=== PATIENT | female | born 1935 | race Caucasian/White ===

== ENCOUNTER 2017-03-27 22:00 | Inpatient (IN) | payer MEDICARE, OTHER ==
[~2017-03-27] VITALS: Ht 152.4 cm; Wt 55.5 kg
[~2017-03-27 22:00] MED LIST: CEFP125S PO; DIAZ5 PO; FLUO0.05 TOP; LORTS
[2017-03-27 22:47] VITALS: BP 154/95; PULSE 88; RESP 18; TEMP 98.1; O2SAT 99
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
[2017-03-28 00:15] LABS: AUTOMATED NEUTROPHIL # 7.7 TH/MM3 (1.8-7.7); BASOPHIL # 0.1 TH/MM3 (0-0.2); BASOPHIL % 0.9 % (0.0-2.0); EOSINOPHIL # 0.1 TH/MM3 (0-0.4); EOSINOPHIL % 1.3 % (0.0-4.0); HEMATOCRIT 36.3 % (35.0-46.0); HEMO FLAGS DIFF FINAL; LYMPHOCYTE # 2.2 TH/MM3 (1.0-4.8); MEAN CELL VOLUME 74.5 FL (80.0-100.0); MEAN CORPUSCULAR HEMOGLOBIN 24.9 PG (27.0-34.0); MEAN CORPUSCULAR HGB CONC 33.4 % (32.0-36.0); NEUT % 72.8 % (16.0-70.0); PLATELET COUNT 450 TH/MM3 (150-450); RED BLOOD COUNT 4.87 MIL/MM3 (4.00-5.30); RED CELL DISTRIBUTION WIDTH 17.6 % (11.6-17.2); WHITE BLOOD COUNT 10.6 TH/MM3 (4.0-11.0)
[2017-03-28 00:19] LABS: BACTERIA, URINE RARE /hpf; BLOOD, URINE NEG (NEG); COMMENT (UR) CULT NOT INDICATED; CULTURE IF INDICATED CULT NOT INDICATED; GLUCOSE,URINE NEG (NEG); KETONE, URINE NEG (NEG); NITRITE,URINE NEG (NEG); URINE COLOR LIGHT-YELLOW (YELLW/STRAW)
[2017-03-28 00:31] LABS: ALT (GPT) 34 U/L (10-53); ANION GAP 10 MEQ/L (5-15); AST (GOT) 21 U/L (15-37); BICARBONATE 22.4 MEQ/L (21.0-32.0); BLOOD UREA NITROGEN 28 MG/DL (7-18); CHLORIDE 104 MEQ/L (98-107); GLOMERULAR FILTRATION RATE 61 ML/MIN (>89); POTASSIUM 4.1 MEQ/L (3.5-5.1); SODIUM (NA) 136 MEQ/L (136-145)
[2017-03-28 00:33] LABS: ALKALINE PHOSPHATASE 118 U/L (45-117); TOTAL BILIRUBIN ADULT 0.4 MG/DL (0.2-1.0)
[2017-03-28 00:36] LABS: ALCOHOL LESS THAN 3 MG/DL (0-5)
[2017-03-28 02:03] VITALS: BP 139/82; PULSE 80; RESP 18; O2SAT 97
[2017-03-28 08:50] VITALS: BP 115/78; PULSE 86; RESP 18; O2SAT 99
[2017-03-28] MEDS ORDERED: LORazepam 0.5 MG TAB PO PRN (12:30)
[2017-03-28] MEDS ORDERED: LORazepam 2 MG/ML VIAL IM PRN (12:30)
[2017-03-28] MEDS ORDERED: MAGNESIUM HYDROXIDE SUSP 30 ML CUP PO PRN (12:30)
[2017-03-28] MEDS ORDERED: ALUMINUM/MAGNESIUM/SIMETH 30 ML CUP PO PRN (12:30)
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
[2017-03-28 17:17] VITALS: BP 121/69; PULSE 76; RESP 18; O2SAT 96
--- NOTE | 2017-03-28 19:57 | RADRPT ---
EXAM DATE/TIME: 03/28/2017 18:34 [place] COMPARISON: No previous studies available for comparison. INDICATIONS : Altered mental status. RADIATION DOSE: 48.11 CTDIvol (mGy) MEDICAL HISTORY : Renal calculi. SURGICAL HISTORY : Appendectomy. ENCOUNTER: Initial ACUITY: 1 day PAIN SCALE: 5/10 LOCATION: cranial TECHNIQUE: Multiple contiguous axial images were obtained of the head. Using automated exposure control and adj ustment of the mA and/or kV according to patient size, radiation dose was kept as low as reasonably a chievable to obtain optimal diagnostic quality images. DICOM format image data is available electro nically for review and comparison. FINDINGS: CEREBRUM: The ventricles and cortical sulci are widened. There is decreased density seen in the periventricular white matter No evidence of midline shift, mass lesion, hemorrhage or acute infarction. No extra-ax ial fluid collections are seen. POSTERIOR FOSSA: The cerebellum and brainstem are intact. The 4th ventricle is midline. The cerebellopontine angle i s unremarkable. EXTRACRANIAL: The visualized portion of the orbits is intact. SKULL: The calvaria is intact. No evidence of skull fracture. CONCLUSION: 1. No acute abnormality seen. 2. Age-related atrophy and suspected small vessel ischemic change in the white matter. Mazin Dickerson MD on March 28, 2017 at 19:54 Board Certified Radiologist. This report was verified electronically.
[2017-03-28 20:05] VITALS: BP 174/90; PULSE 89; TEMP 97.4; O2SAT 98
[2017-03-28] MEDS: ACETAMINOPHEN 325 MG TAB PO PRN (22:37)
[2017-03-28] MEDS: POLYSACCHARIDE IRON COMPLEX 150 MG CAP PO SCH (23:01)
[2017-03-29 00:30] VITALS: BP 145/68; PULSE 78; RESP 18; O2SAT 98
[2017-03-29 06:00] VITALS: BP 155/77; PULSE 90; RESP 18; TEMP 97.3; O2SAT 98
--- NOTE | 2017-03-29 08:32 | EKG ---
Date Performed: 03/28/2017 Time Performed: 14:23:58 PTAGE: 81 years EKG: Sinus rhythm WITH SHORT HI INTERVAL MARKED LEFT AXIS DEVIATION PATTERN CONSISTENT WITH PULMONARY DISEASE ABNORMAL ECG WARNING: DATA QUALITY MAY AFFECT INTERPRETATION NO PREVIOUS TRACING Lead V2 is missing. DOCTOR: Lola Villar Interpretating Date/Time 03/29/2017 08:31:22
[2017-03-29] MEDS ORDERED: PNEUMOCOCCAL POLYVALENT INJ 25 MCG/0.5 ML SYR IM ONE (09:00)
[2017-03-29] MEDS ORDERED: INFLUENZA VIRUS VACCINE (QUADRIVALENT) 0.5 ML SYR IM ONE (09:00)
[2017-03-29] MEDS: POLYSACCHARIDE IRON COMPLEX 150 MG CAP PO SCH ×2 (09:06→20:36)
[2017-03-29 10:08] LABS: AUTOMATED NEUTROPHIL # 4.3 TH/MM3 (1.8-7.7); BASOPHIL # 0.1 TH/MM3 (0-0.2); BASOPHIL % 1.3 % (0.0-2.0); EOSINOPHIL # 0.2 TH/MM3 (0-0.4); EOSINOPHIL % 2.7 % (0.0-4.0); HEMATOCRIT 35.8 % (35.0-46.0); HEMO FLAGS DIFF FINAL; LYMPHOCYTE # 1.5 TH/MM3 (1.0-4.8); MEAN CELL VOLUME 75.5 FL (80.0-100.0); MEAN CORPUSCULAR HEMOGLOBIN 24.6 PG (27.0-34.0); MEAN CORPUSCULAR HGB CONC 32.6 % (32.0-36.0); MONO % 4.6 % (0.0-8.0); NEUT % 67.4 % (16.0-70.0); PLATELET COUNT 422 TH/MM3 (150-450); RED BLOOD COUNT 4.75 MIL/MM3 (4.00-5.30); RED CELL DISTRIBUTION WIDTH 17.7 % (11.6-17.2); WHITE BLOOD COUNT 6.4 TH/MM3 (4.0-11.0)
[2017-03-29 10:28] LABS: ALT (GPT) 23 U/L (10-53)
[2017-03-29 10:40] LABS: ANION GAP 8 MEQ/L (5-15); AST (GOT) 28 U/L (15-37); BICARBONATE 23.1 MEQ/L (21.0-32.0); BLOOD UREA NITROGEN 20 MG/DL (7-18); CHLORIDE 104 MEQ/L (98-107); GLOMERULAR FILTRATION RATE 71 ML/MIN (>89); POTASSIUM 4.4 MEQ/L (3.5-5.1); SODIUM (NA) 135 MEQ/L (136-145)
[2017-03-29 10:54] LABS: ALKALINE PHOSPHATASE 115 U/L (45-117); HDL CHOLESTEROL 52.3 MG/DL (40.0-60.0); LDL CHOLESTEROL 64 MG/DL (0-99); TOTAL BILIRUBIN ADULT 0.6 MG/DL (0.2-1.0)
[2017-03-29] MEDS ORDERED: hydrOXYzine HCL 50 MG TAB PO PRN (14:45)
[2017-03-29] MEDS ORDERED: ACETAMINOPHEN 325 MG TAB PO PRN (14:45)
--- NOTE | 2017-03-29 14:55 | HHI.PYPN ---
Subjective Remarks Patient seen in day room with nurse Lissett. Patient initially admitted by Dr. Alec Pimentel who to the initial H&P. Who gave her competency. Though he did acknowledge orientation only to person. However after my interview I feel patient does have dementia and does not have capacity for admission or medication management. Thus I finished the psychiatric template. I also initiated first opinion petition supporting Bell act, health care surrogate, and guardian advocate, patient herself was calm pleasant with me somewhat feisty and humerus. Though she is oriented to self, somewhat confused about location though she did not was [place], somewhat confused about date. She is so far been no behavior problems. She does say she has a granddaughter local and supportive and 2 children. For now we'll continue observation monitoring With counselor attempt to reach patient's granddaughter children to arrange a family meeting Review of Systems Constitutional: DENIES: Diaphoretic episodes, Fatigue, Fever, Weight gain, Weight loss, Chills, Dizziness, Change in appetite, Night Sweats Endocrine: DENIES: Abnorml menstrual pattern, Heat/cold intolerance, Polydipsia , Polyuria, Polyphagia Eyes: DENIES: Blurred vision, Diplopia, Eye inflammation, Eye pain, Vision loss , Photosensitivity, Double Vision Ears, nose, mouth, throat: DENIES: Tinnitus, Hearing loss, Vertigo, Nasal discharge, Oral lesions, Throat pain, Hoarseness, Ear Pain, Running Nose, Epistaxis, Sinus Pain, Toothache, Odynophagia Respiratory: DENIES: Apneas, Cough, Snoring, Wheezing, Hemoptysis, Sputum production, Shortness of breath Cardiovascular: DENIES: Chest pain, Palpitations, Syncope, Dyspnea on Exertion , PND, Lower Extremity Edema, Orthopnea, Claudication Gastrointestinal: DENIES: Abdominal pain, Black stools, Bloody stools, Constipation, Diarrhea, Nausea, Vomiting, Difficulty Swallowing, Anorexia Genitourinary: DENIES: Abnormal vaginal bleeding, Dysmenorrhea, Dyspareunia, Sexual dysfunction, Urinary frequency, Urinary incontinence, Urgency, Hematuria , Dysuria, Nocturia, Vaginal discharge Musculoskeletal: DENIES: Joint pain, Muscle aches, Stiffness, Joint Swelling, Back pain, Neck pain Integumentary: DENIES: Abnormal pigmentation, Pruritus, Rash, Nail changes, Breast masses, Breast skin changes, Nipple discharge Hematologic/lymphatic: DENIES: Bruising, Lymphadenopathy Immunologic/allergic: DENIES: Eczema, Urticaria Neurologic: DENIES: Abnormal gait, Headache, Localized weakness, Paresthesias, Seizures, Speech Problems, Tremor, Poor Balance Psychiatric: COMPLAINS OF: Depression Objective Alert: Yes [place]: Person Mood: Anxious (mildly), Calm, Depressed (mildly) Affect: Other (slight increase range and intensity) Memory Intact: Comment (poor) Hallucinations: Other (denies) Delusions: No Delusion Type: Other (denies) Suicidal: Ideation (denies at this time) Homicidal: Ideation (denies) Insight/Judgment Poor Labs Test 03/29/17 08:52 White Blood Count 6.4 TH/MM3 Red Blood Count 4.75 MIL/MM3 Hemoglobin 11.7 GM/DL Hematocrit 35.8 % Mean Corpuscular Volume 75.5 FL Mean Corpuscular Hemoglobin 24.6 PG Mean Corpuscular Hemoglobin Concent 32.6 % Red Cell Distribution Width 17.7 % Platelet Count 422 TH/MM3 Mean Platelet Volume 8.1 FL Neutrophils (%) (Auto) 67.4 % Lymphocytes (%) (Auto) 24.0 % Monocytes (%) (Auto) 4.6 % Eosinophils (%) (Auto) 2.7 % Basophils (%) (Auto) 1.3 % Neutrophils # (Auto) 4.3 TH/MM3 Lymphocytes # (Auto) 1.5 TH/MM3 Monocytes # (Auto) 0.3 TH/MM3 Eosinophils # (Auto) 0.2 TH/MM3 Basophils # (Auto) 0.1 TH/MM3 CBC Comment DIFF FINAL Differential Comment Blood Urea Nitrogen 20 MG/DL Creatinine 0.78 MG/DL Random Glucose 80 MG/DL Total Protein 7.1 GM/DL Albumin 2.9 GM/DL Calcium Level 9.0 MG/DL Alkaline Phosphatase 115 U/L Aspartate Amino Transf (AST/SGOT) 28 U/L Alanine Aminotransferase (ALT/SGPT) 23 U/L Total Bilirubin 0.6 MG/DL Sodium Level 135 MEQ/L Potassium Level 4.4 MEQ/L Chloride Level 104 MEQ/L Carbon Dioxide Level 23.1 MEQ/L Anion Gap 8 MEQ/L Estimat Glomerular Filtration Rate 71 ML/MIN Triglycerides Level 95 MG/DL Cholesterol Level 135 MG/DL LDL Cholesterol 64 MG/DL HDL Cholesterol 52.3 MG/DL Cholesterol/HDL Ratio 2.58 RATIO Vitamin B12 Level 738 PG/ML 25-Hydroxy Vitamin D Total 24.4 ng/ML Thyroid Stimulating Hormone 3rd Gen 0.960 uIU/ML Vitals/IOs Vital Signs Date Time Temp Pulse Resp B/P (MAP) Pulse Ox O2 Delivery O2 Flow Rate FiO2 03/29/17 06:00 97.3 90 18 155/77 (103) 98 03/28/17 17:17 Room Air Intake and Output 03/29/17 03/29/17 03/30/17 08:00 16:00 00:00 Intake Total 0 ml Balance 0 ml Assessment & Plan Problem List: (1) DEMENTIA IN OTH DISEASES CLASSD ELSWHR W BEHAVIORAL DISTURB ICD Codes: F02.81 - DEMENTIA IN OTH DISEASES CLASSD ELSWHR W BEHAVIORAL DISTURB (2) ALZHEIMER'S DISEASE WITH LATE ONSET ICD Codes: G30.1 - ALZHEIMER'S DISEASE WITH LATE ONSET Assessment & Plan Estimated LOS: days patient remains confused disoriented, with no insight. Justification for Cont. Inpt. This time patient will decompensate if the placed a lower level of care Discharge Planning To be determined Request HC Surrog/Guard Advoc?: Yes Mazin Dela Cruz MD Mar 29, 2017 14:55
[2017-03-29 16:57] LABS: HEMOGLOBIN A1a 1.1 %; HEMOGLOBIN A1b 1.8 %; HEMOGLOBIN Ao 84.5 %; HEMOGLOBIN LA1C 2.1 %; HEMOGLOBIN P3 5.7 %
[2017-03-29 18:39] VITALS: BP 120/73; PULSE 85; RESP 18; TEMP 98
[2017-03-29] MEDS ORDERED: diphenhydrAMINE HCL 50 MG CAP PO PRN (21:00)
[2017-03-29] MEDS: ACETAMINOPHEN 325 MG TAB PO PRN (21:35)
[2017-03-30 06:00] VITALS: BP 142/60; PULSE 74; RESP 16; TEMP 97.3; O2SAT 95
[2017-03-30] MEDS: POLYSACCHARIDE IRON COMPLEX 150 MG CAP PO SCH ×2 (09:00→21:17)
--- NOTE | 2017-03-30 10:02 | HHI.PYPN ---
Subjective Remarks Patient seen with nurse Ngozi and counselor Bernie. Chart reviewed. Patient seen patient laying quietly in her room in bed, she is calm cooperative and pleasant though continues diffusely confused disoriented. There is no behavioral problems. However it appears patient's granddaughter is some reluctance to give permission for medications including Benadryl Atarax and Ativan. Will have counselor attempt to call granddaughter to arrange for a family meeting will the next 24-48 hours Review of Systems Except as stated in HPI: all other systems reviewed are Neg Objective Alert: Yes [place]: Person Mood: Anxious (mildly), Calm, Depressed (mildly) Affect: Other (slight increase range and intensity) Memory Intact: Comment (poor) Hallucinations: Other (denies) Delusions: No Delusion Type: Other (denies) Suicidal: Ideation (denies at this time) Homicidal: Ideation (denies) Insight/Judgment Very poor Vitals/IOs Vital Signs Date Time Temp Pulse Resp B/P (MAP) Pulse Ox O2 Delivery O2 Flow Rate FiO2 03/30/17 06:00 97.3 74 16 142/60 (87) 95 03/28/17 17:17 Room Air Assessment & Plan Problem List: (1) DEMENTIA IN OTH DISEASES CLASSD ELSWHR W BEHAVIORAL DISTURB ICD Codes: F02.81 - DEMENTIA IN OTH DISEASES CLASSD ELSWHR W BEHAVIORAL DISTURB (2) ALZHEIMER'S DISEASE WITH LATE ONSET ICD Codes: G30.1 - ALZHEIMER'S DISEASE WITH LATE ONSET Assessment & Plan Estimated LOS: days patient continues confused and demented the behavioral problems. Need to arrange family meeting with patient's granddaughter to discuss medications placement and treatment options Justification for Cont. Inpt. At this time patient will decompensate with placed in a lower level of care Discharge Planning To be determined Request HC Surrog/Guard Advoc?: Yes Mazin Dela Cruz MD Mar 30, 2017 10:02
--- NOTE | 2017-03-30 11:54 | PD.PSY.CON ---
Provisional Diagnosis Admission Date Mar 28, 2017 at 12:25 [place]. Adjustment disorder with mixed disturbance of emotion and conduct Rule out dementia History of Present Illness Service Psychiatry Consult Requested By Reason for Consult Second opinion Primary Care Physician No Primary Care Physician HPI This is an 81-year-old female who presents under a Bell act for making suicidal statements. According to the Bell act, the patient herself called 911 ("on accident") and stated she would commit suicide if her television wasn' t fixed and she didn't get her Social Security. If further states she is tired of living in misery. The Bell act indicates her home does not have much food. She has multiple operations technician filled with spoiled milk. She further has not bathed in several days.Patient was seen in the emergency department and initially had some confusion regarding the date and short term memory testing. Upon interview with this physician, she is oriented to date but she still insists that someone is stealing her money. This physician called the patient's granddaughter, who indicates the patient is sometimes confused and she needs attention every day or she has difficulties functioning. She states the patient 's son has his name on her bank accounts but she is unaware of his handling of her money. She states the patient's daughter has been caring for the patient, but that they do it differently. The granddaughter feels the patient is not able to live alone independently. The patient did make suicidal statements as well as threats. Patient was seen today for psychiatric second opinion. Case was also discussed with Dr. Dela Cruz. On psychiatric evaluation patient is found in her room, laying in her bed, a little bit opositional, requesting to be discharged to go home. Patient says that she doesn't know the reason of her hospitalization. Patient says that she is from [place] she doesn't know what she is doing here. She denies suicidal and homicidal ideation, she denies visual and auditory hallucinations. Past Family Social History Uncoded Allergies: THROAT SPRAY (Allergy, Severe, 01/27/10) No Active Prescriptions or Reported Meds Current Medications Medications (Trade) Dose Ordered Sig/Jill Route Start Time Stop Time Status Last Admin (Ativan) 0.5 mg Q12H PRN PO 03/28/17 12:30 Future Hold 03/28/17 22:36 (Ativan Inj) 0.5 mg Q12H PRN IM 03/28/17 12:30 Future Hold (Tylenol) 650 mg Q4H PRN PO 03/28/17 12:30 03/29/17 21:35 (Milk Of Magnesia Liq) 30 ml DAILY PRN PO 03/28/17 12:30 (Mag-Al Plus Susp Liq) 30 ml Q6H PRN PO 03/28/17 12:30 (Nu-Iron) 150 mg Q12HR PO 03/28/17 21:00 03/29/17 20:36 (Benadryl) 50 mg HS PRN PO 03/29/17 21:00 Future Hold (Atarax) 50 mg Q6H PRN PO 03/29/17 14:45 Future Hold Patient's Strengths (min. 2) Verbal and has access to healthcare. Physical Exam Vital Signs Vital Signs Date Time Temp Pulse Resp B/P (MAP) Pulse Ox O2 Delivery O2 Flow Rate FiO2 03/30/17 06:00 97.3 74 16 142/60 (87) 95 03/28/17 17:17 Room Air I/O 03/30/17 03/30/17 03/31/17 08:00 16:00 00:00 Intake Total 240 ml Balance 240 ml Mental Status Examination Appearance Any legal woman, age appearing, oppositional, poorly cooperative Speech: Unremarkable Orientation: Person Memory: Impaired (describe) Thought Process: Organized, Goal Directed Thought Content: Paranoid Hallucination Type: None Attention and Concentration: Abnormal Suicidal Ideation: Yes Previous Suicide Attempts: No Homicidal Ideation: No Previous Homicide Attempts: No Insight: Fair Judgment: Unrealistic Affect: Anxious Mood: Anxious Motor Activity: Normal gait Assessment & Plan Problem List: (1) DEMENTIA IN OTH DISEASES CLASSD ELSWHR W BEHAVIORAL DISTURB ICD Codes: F02.81 - DEMENTIA IN OTH DISEASES CLASSD ELSWHR W BEHAVIORAL DISTURB (2) ALZHEIMER'S DISEASE WITH LATE ONSET ICD Codes: G30.1 - ALZHEIMER'S DISEASE WITH LATE ONSET Assessment & Plan: I have seen and examined this patient, discussed with Dr. Dela Cruz, I agree and concur with this plan and assessment. Consult appreciated. Assessment & Plan Estimated LOS: days Request HC Surrog/Guard Advoc?: Yes Don Mancilla MD Mar 30, 2017 11:54
[2017-03-30 18:00] VITALS: BP 150/80; PULSE 82; RESP 18; TEMP 97.5; O2SAT 98
--- NOTE | 2017-03-30 21:12 | MB ---
cc: JIGNESH GARCIA M.D. DATE OF CONSULTATION 03/30/17 DATE OF 1935 AGE 81 REASON FOR CONSULTATION Cognitive decline, possible dementia. HISTORY OF PRESENT ILLNESS This is an 81-year-old woman Bell Acted because she apparently called the night of admission threatening to hurt herself. She was found in the house and transported here. Apparently, her living circumstances were not very good. She can not tell me any past medical history. Per chart it states that she has glaucoma. She has had an appendectomy and tonsillectomy. No active medications listed. She states that she was just visiting with family. She states it is her daughter. PHYSICAL EXAMINATION VITAL SIGNS: On exam vitals temperature is 97.3, pulse 74, respiratory rate 16, blood pressure 142/60, satting at 95%. NEURO: She is awake and alert to herself. She knows that she lives in [place]. She states she moved here from [place] but can not tell me how long ago. She thinks it is fall. She is not sure if it is February or March. She does not know the day of the week or the date. She knows it is 20 something but cannot tell me the year. Can not tell me the governor of [place]. Does not know who the cco & president is. Zero recall of three objects. She cannot spell world backwards. She follows commands. Her pupils are reactive. Face symmetrical. Tongue midline. Motor aguilera there is no lateralizing deficits. No drift or leg lag. Cerebellar testing normal. DTRs are 1 to 2+. Gait is normal. LABORATORY DATA Labs reviewed. TSH was 0.960. Her B12 was 738, vitamin D is low at 24.4. Toxicology was negative. Urine was unremarkable. IMAGING STUDIES CT of the head showed atrophy but nothing acute. IMPRESSION Likely dementia process in an 81-year-old woman. Recommend getting an EEG, add an RPR and I asked her about if she is willing to take any medicines for memory, start her on Namenda 5 milligrams daily, increasing by 5 milligrams weekly until she reaches 10 milligrams b.i.d. dosing. Continue current care. Thank you for consulting neurology. MD MIMA Lim/TOM /6:22 PM /8:57 PM
[2017-03-31 06:05] VITALS: BP 138/94; PULSE 78; RESP 15; TEMP 96.9; O2SAT 96
[2017-03-31] MEDS: POLYSACCHARIDE IRON COMPLEX 150 MG CAP PO SCH ×2 (09:00→21:00)
[2017-03-31] MEDS: MEMANTINE HCL 5 MG TAB PO SCH (09:30)
--- NOTE | 2017-03-31 16:42 | HHI.PYPN ---
Subjective Remarks Patient seen in dayroom with floor staff, patient calm pleasant with me, continues pleasantly confused. Has been compliant with the medication. Review of Systems Except as stated in HPI: all other systems reviewed are Neg Mental Status Examination Appearance: Appropriate Consciousness: Alert Orientation: Person, Place Motor Activity: Normal gait Speech: Unremarkable, Other (somewhat disorganized) Language: Adequate Fund of Knowledge: Poor Attention and Concentration: Other (poor) Memory: Impaired Mood: Other (euthymic to somewhat irritable) Affect: Other (plan increase range intensity) Thought Process & Associations: Linear Thought Content: Ideas of reference Hallucination Type: None (denies) Delusion Type: Other (mildly vigilant) Suicidal Ideation: No Suicidal Plan: No Suicidal Intention: No Homicidal Ideation: No Homicidal Plan: No Homicidal Intention: No Insight: Poor Judgment: Poor Results Labs Test 03/31/17 10:22 Rapid Plasma Reagin NON-REACTIVE Vitals/IOs Vital Signs Date Time Temp Pulse Resp B/P (MAP) Pulse Ox O2 Delivery O2 Flow Rate FiO2 03/31/17 06:05 96.9 78 15 138/94 (109) 96 03/28/17 17:17 Room Air Intake and Output 03/31/17 03/31/17 04/01/17 08:00 16:00 00:00 Intake Total 240 ml 720 ml Balance 240 ml 720 ml Assessment & Plan Problem List: (1) DEMENTIA IN OTH DISEASES CLASSD ELSWHR W BEHAVIORAL DISTURB ICD Codes: F02.81 - DEMENTIA IN OTH DISEASES CLASSD ELSWHR W BEHAVIORAL DISTURB (2) ALZHEIMER'S DISEASE WITH LATE ONSET ICD Codes: G30.1 - ALZHEIMER'S DISEASE WITH LATE ONSET Assessment & Plan Estimated LOS: days patient remains confused demented though no behavior problems. Continues to remain some issues related to relationship of patient's daughter, and granddaughter Justification for Cont. Inpt. At this time patient decompensated placed a lower level of care Discharge Planning Place remains problematic between various family members and consideration of an KATIA Request HC Surrog/Guard Advoc?: Yes Mazin Dela Cruz MD Mar 31, 2017 16:42
[2017-03-31 17:59] VITALS: BP 124/81; PULSE 75; RESP 15; TEMP 97.6; O2SAT 97
[2017-03-31] MEDS: ACETAMINOPHEN 325 MG TAB PO PRN (21:10)
--- NOTE | 2017-03-31 21:42 | MG ---
cc: ELOISA BOYLE MD Lab No: [id number] Date:03/31/17 Age: 81 Sex: F Race: DATE OF 1935 HISTORY An 81-year-old with history of confusion. DESCRIPTION 5-8 Hz posterior rhythm, 20-50 microvolts, theta beta in the frontal channels with myogenic artifact, a lot of eye blink movement artifact noted. Attenuation of background slowing with transition into drowsy state. Bitemporal slowing and drowsiness. Reduced driving with photic stimulation. Single lead EKG showing sinus rhythm. INTERPRETATION Mild encephalopathy and drowsy state. Clinical correlation. Eloisa Boyle MD MG/EO /9:09 PM /9:36 PM
[2017-04-01 05:55] VITALS: BP 142/82; PULSE 73; RESP 17; TEMP 97.4
[2017-04-01] MEDS: POLYSACCHARIDE IRON COMPLEX 150 MG CAP PO SCH (09:00)
[2017-04-01] MEDS ORDERED: NAME5TAB2 PO (09:21)
[2017-04-01] MEDS ORDERED: NU-IRON PO (09:21)
[2017-04-01] MEDS: MEMANTINE HCL 5 MG TAB PO SCH (09:25)
--- NOTE | 2017-04-01 09:28 | HHI.DS ---
Psychiatry Discharge Summary Inpatient Psychiatric care?: Yes Advance Directive: No Reason Not Provided: patient declined Mental Health AdvanceDirective: No (patient declined) Health Care Proxy: No (patient declined) Admission Admission Date Mar 28, 2017 at 12:25 Admission Diagnosis: (1) ALZHEIMER'S DISEASE WITH LATE ONSET ICD Code: G30.1 - ALZHEIMER'S DISEASE WITH LATE ONSET (2) DEMENTIA IN OTH DISEASES CLASSD ELSWHR W BEHAVIORAL DISTURB ICD Code: F02.81 - DEMENTIA IN OTH DISEASES CLASSD ELSWHR W BEHAVIORAL DISTURB Brief History This is an 81-year-old female who presents under a Bell act for making suicidal statements. According to the Bell act, the patient herself called 911 ("on accident") and stated she would commit suicide if her television wasn' t fixed and she didn't get her Social Security. If further states she is tired of living in misery. The Bell act indicates her home does not have much food. 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 She further has not bathed in several days.Patient was seen in the emergency department and initially had some confusion regarding the date and short term memory testing. Upon interview with this physician, she is oriented to date but she still insists that someone is stealing her money. This physician called the patient's granddaughter, who indicates the patient is sometimes confused and she needs attention every day or she has difficulties functioning. She states the patient 's son has his name on her bank accounts but she is unaware of his handling of her money. She states the patient's daughter has been caring for the patient, but that they do it differently. The granddaughter feels the patient is not able to live alone independently. The patient did make suicidal statements as well as threats. Patient was seen today for psychiatric second opinion. Case was also discussed with Dr. Dela Cruz. On psychiatric evaluation patient is found in her room, laying in her bed, a little bit opositional, requesting to be discharged to go home. Patient says that she doesn't know the reason of her hospitalization. Patient says that she is from [place] she doesn't know what she is doing here. She denies suicidal and homicidal ideation, she denies visual and auditory hallucinations. Tobacco Use In Past 30 Days: No Tobacco Past 30 Days Alcohol Use: Never Hospital Course Patient's hospital course was uneventful. There are no behavioral problems noted. She is compliant with medications. Her confusion cognitive issues were present. Though she did show abilities focus and to cooperate. Is discussions with both patient's daughter and granddaughter. They both appear to care for the patient. They're both willing to assume some type of [facility] care. However feel that with the daughter being at home and able to care for patients more during the day then the granddaughter who was working and raising 4 children that the daughter may be some more appropriate primary care. We did meet with the daughter today along with patient. Patient is willing to go home with her daughter. The daughter made a commitment for her mother state in the home with her. She is also agreeing to home health care, follow up with primary care doctor Dr. Sun, compliance with her medication. Patient also is willing to do this. Thus patient will be discharged today to her daughter with follow-up primary care Dr. Sun and referral to home health care Results Blood Pressure 142 / 82 Vital Signs Date Time Temp Pulse Resp B/P (MAP) Pulse Ox O2 Delivery O2 Flow Rate FiO2 04/01/17 05:55 97.4 73 17 142/82 (102) 03/31/17 17:59 97 03/28/17 17:17 Room Air Laboratory Tests Test 03/31/17 10:22 Laboratory Results Test 03/29/17 08:52 Cholesterol Level 135 MG/DL (120-200) HDL Cholesterol 52.3 MG/DL (40.0-60.0) Hemoglobin A1c 5.7 % (4.3-6.0) LDL Cholesterol 64 MG/DL (0-99) Triglycerides Level 95 MG/DL (42-150) Summary of Procedures None done Imaging Last Impressions Head CT 03/28/17 0000 Signed Impressions: Service Date/Time: Tuesday, March 28, 2017 18:34 - CONCLUSION: 1. No acute abnormality seen. 2. Age-related atrophy and suspected small vessel ischemic change in the white matter. Mazin Dickerson MD Pending results at discharge: No Medications # of Antipsychotic meds at D/C: 0 Approp Antipsych med options 1 - Minimum of three failed multiple trials of monotherapy. 2 - Documented plan to taper to monotherapy due to previous use of multiple meds OR cross-taper in progress at D/C. 3 - Documentation of augmentation of Clozapine. 4 - Justification other than those listed in allowable values 1-3, document here : Discharge Discharge Date: Apr 01, 2017 Discharge Diagnosis: (1) ALZHEIMER'S DISEASE WITH LATE ONSET Diagnosis: Principal ICD Code: G30.1 - ALZHEIMER'S DISEASE WITH LATE ONSET (2) DEMENTIA IN OTH DISEASES CLASSD ELSWHR W BEHAVIORAL DISTURB Diagnosis: Principal ICD Code: F02.81 - DEMENTIA IN OTH DISEASES CLASSD ELSWHR W BEHAVIORAL DISTURB Pt Condition on Discharge: Stable Discharge Disposition: Discharge Home Discharge Instructions Diet Instructions: As Tolerated, No Restrictions Activities you can perform: Regular-No Restrictions Scheduled Appointment: follow-up Dr. Sun, follow-up home health care Discharge Time > 30 minutes Mental Status Examination Appearance: Appropriate Consciousness: Alert Orientation: Person, Place Motor Activity: Normal gait Speech: Unremarkable, Other (somewhat disorganized) Language: Adequate Fund of Knowledge: Poor Attention and Concentration: Other (poor) Memory: Impaired Mood: Other (euthymic to somewhat irritable) Affect: Other (plan increase range intensity) Thought Process & Associations: Linear Thought Content: Ideas of reference Hallucination Type: None (denies) Delusion Type: Other (mildly vigilant) Suicidal Ideation: No Suicidal Plan: No Suicidal Intention: No Homicidal Ideation: No Homicidal Plan: No Homicidal Intention: No Insight: Poor Judgment: Poor Discharge/Advance Care Plan Health Problems: (1) DEMENTIA IN OTH DISEASES CLASSD ELSWHR W BEHAVIORAL DISTURB (2) ALZHEIMER'S DISEASE WITH LATE ONSET Goals to promote your health * To prevent worsening of your condition and complications * To maintain your health at the optimal level Directions to meet your goals Take your medications as prescribed Follow your dietary instruction Follow activity as directed Keep your appointments as scheduled Take your immunizations and boosters as scheduled If your symptoms worsen call your PCP, if no PCP go to Urgent Care Center or Emergency Room For 24 questions related to your inpatient stay or results of tests pending at discharge, please contact Dr. Mazin Dela Cruz at Smoking is Dangerous to Your Health. Avoid second hand smoking Mazin Dela Cruz MD Apr 01, 2017 09:27
== END 2017-04-01 12:10 | disposition home or self-care (01) | DRG 57 ==
LOC: NEPD 22:00 → NEDA 03-28 12:25 → H250 03-28 20:02
PROVIDERS: ADMIT Psychiatry & Neurology Psychiatry; ATTEND Psychiatry & Neurology Psychiatry
DX: G30.1 Alzheimer's disease with late onset (principal); F02.81 Dementia in other diseases classified elsewhere, unspecified severity, with behavioral disturbance; H40.9 Unspecified glaucoma; I10 Essential (primary) hypertension
CPT/HCPCS: 70450; 80053; 80061; 80307; 81001; 82306; 82607; 83036; 84443; 85025; 86592; 93005; 95819; Q0163

== ENCOUNTER 2017-05-03 14:11 | Inpatient (IN) | payer MEDICARE, OTHER ==
[~2017-05-03] VITALS: Ht 152.4 cm; Wt 46.0 kg
[~2017-05-03 14:11] MED LIST changes: -CEFP125S PO; -DIAZ5 PO; -FLUO0.05 TOP; -LORTS; +NAME5TAB2 PO; +NU-IRON PO
[2017-05-03 14:16] VITALS: BP 152/92; PULSE 96; RESP 20; TEMP 98.1; O2SAT 98
[2017-05-03] MEDS ORDERED: SODIUM CHLORIDE 0.9% FLUSH 10 ML FLUSH IVF PRN (14:30)
--- NOTE | 2017-05-03 14:31 | PD ---
HPI Chief Complaint: Neuro Symptoms/ Deficits Time Seen by Provider: 14:24 Travel History International Travel<30 days: No Contact w/Intl Traveler<30days: No Traveled to known affect area: No History of Present Illness HPI Patient is an 81-year-old female presenting to the emergency evaluation of strokelike symptoms. Patient was last seen normal last night. Daughter is at bedside and states patient fell out of bed and was found on the floor. Patient was put back into bed. When she woke up this morning patient was unable to ambulate to the bathroom as she normally would, daughter states that she wasn't moving her leg. When the home health nurse arrived she recognized the stroke symptoms and was brought to the emergency department. Patient has a history of dementia. Patient reports pain in her face secondary to fall. Patient did not quantify her pain scale. Patient does report not feeling well, daughter states that she has had a cough for 2-3 days. PFSH Past Medical History Arthritis: No Autoimmune Disease: No Anxiety: Yes Depression: No Heart Rhythm Problems: No Cancer: No Cardiovascular Problems: No High Cholesterol: No Chemotherapy: No Chest Pain: Yes Congestive Heart Failure: No Diabetes: No Diminished Hearing: No Endocrine: No Glaucoma: Yes Genitourinary: No Headaches: No Hepatitis: No Hiatal Hernia: No Hypertension: Yes Immune Disorder: No Kidney Stones: Yes Musculoskeletal: Yes (recent balance problems, last 6 months) Neurologic: No Psychiatric: No Reproductive: No Respiratory: No Radiation Therapy: No Seizures: No Sickle Cell Disease: No Thyroid Disease: No Menopausal: Yes Past Surgical History Abdominal Surgery: Yes (APPENDECTOMY) Appendectomy: Yes Cardiac Surgery: No Ear Surgery: No Endocrine Surgery: No Eye Surgery: No Genitourinary Surgery: No Gynecologic Surgery: No Oral Surgery: Yes (ADENOTONSILLECTOMY) Pacemaker: No Thoracic Surgery: No Other Surgery: Yes Social History Alcohol Use: No Tobacco Use: No Substance Use: No Allergies-Medications (Allergen,Severity, Reaction): Uncoded Allergies: THROAT SPRAY (Allergy, Severe, 01/27/10) Reported Meds & Prescriptions Reported Meds & Active Scripts Active Reported Trazodone (Trazodone HCl) 50 Mg Tab 50 Mg PO HS Lorazepam 0.5 Mg Tab 0.5 Mg PO Q8H PRN Quetiapine (Quetiapine Fumarate) 25 Mg Tab 25 Mg PO BID Review of Systems Except as stated in HPI: all other systems reviewed are Neg HENT: No: Headaches Cardiovascular: No: Chest Pain or Discomfort Respiratory: Positive: Cough, No: Shortness of Breath Gastrointestinal: No: Vomiting Musculoskeletal: Positive: Pain Skin: Positive Change in Pigmentation Neurologic: Positive: Weakness, Focal Abnormalities Physical Exam Narrative GENERAL: Thin, well-developed, alert elderly female. Resting in no acute distress SKIN: Warm and dry. Edema and ecchymosis noted to right cheek. Ecchymosis noted to bilateral upper eyelids and bilateral lower eyelids, edema noted to bridge of nose HEAD: As above. Normocephalic. EYES: Pupils equal and round. No scleral icterus. No injection or drainage. Extraocular movements are intact ENT: No nasal bleeding or discharge. Mucous membranes pink and moist. No septal hematoma noted on exam. NECK: Trachea midline. No JVD. No cervical spine tenderness or step-off noted. CARDIOVASCULAR: Regular rate and rhythm. RESPIRATORY: No accessory muscle use. Clear to auscultation. Breath sounds equal bilaterally. GASTROINTESTINAL: Abdomen soft, non-tender, nondistended. Hepatic and splenic margins not palpable. MUSCULOSKELETAL: Extremities without clubbing, cyanosis, or edema. No obvious deformities. NEUROLOGICAL: Awake and alert. Motor grossly within normal limits. 3 out of 5 muscle strength in the right arms and legs. 5 out of 5 muscle strength in the left upper and lower extremities. Normal speech. PSYCHIATRIC: Appropriate mood and affect; insight and judgment normal. Data Data Last Documented VS Vital Signs Date Time Temp Pulse Resp B/P (MAP) Pulse Ox O2 Delivery O2 Flow Rate FiO2 05/03/17 16:18 72 18 138/81 (100) 97 Room Air 05/03/17 14:16 98.1 Orders Orders Electrocardiogram (05/03/17 14:23) Prothrombin Time / Inr (Pt) (05/03/17 14:23) Act Partial Throm Time (Ptt) (05/03/17 14:23) Complete Blood Count With Diff (05/03/17 14:23) Comprehensive Metabolic Panel (05/03/17 14:23) Creatine Kinase (Cpk) (05/03/17 14:23) Urinalysis - C+S If Indicated (05/03/17 14:23) Ct Brain W/O Iv Contrast(Rout) (05/03/17 14:23) Chest, Single Ap (05/03/17 14:23) Ecg Monitoring (05/03/17 14:23) Iv Access Insert/Monitor (05/03/17 14:23) Oximetry (05/03/17 14:23) Cath For Specimen (05/03/17 14:23) Sodium Chloride 0.9% Flush (Ns Flush) (05/03/17 14:30) Ct Cerv Spine W/O Contrast (05/03/17 ) Ct Facial Bones W/O Iv Cont (05/03/17 ) Troponin I (05/03/17 14:23) Urine Culture (05/03/17 14:30) Admit Order (Ed Use Only) (05/03/17 16:48) Labs Laboratory Tests Test 05/03/17 14:30 White Blood Count 8.1 TH/MM3 Red Blood Count 5.16 MIL/MM3 Hemoglobin 13.0 GM/DL Hematocrit 40.0 % Mean Corpuscular Volume 77.4 FL Mean Corpuscular Hemoglobin 25.2 PG Mean Corpuscular Hemoglobin Concent 32.5 % Red Cell Distribution Width 20.6 % Platelet Count 336 TH/MM3 Mean Platelet Volume 7.9 FL Neutrophils (%) (Auto) 76.6 % Lymphocytes (%) (Auto) 16.7 % Monocytes (%) (Auto) 4.5 % Eosinophils (%) (Auto) 1.1 % Basophils (%) (Auto) 1.1 % Neutrophils # (Auto) 6.2 TH/MM3 Lymphocytes # (Auto) 1.3 TH/MM3 Monocytes # (Auto) 0.4 TH/MM3 Eosinophils # (Auto) 0.1 TH/MM3 Basophils # (Auto) 0.1 TH/MM3 CBC Comment DIFF FINAL Differential Comment Prothrombin Time 11.6 SEC Prothromb Time International Ratio 1.0 RATIO Activated Partial Thromboplast Time 27.7 SEC Urine Color YELLOW Urine Turbidity CLEAR Urine pH 6.0 Urine Specific [place] 1.022 Urine Protein 30 mg/dL Urine Glucose (UA) NEG mg/dL Urine Ketones 80 mg/dL Urine Occult Blood NEG Urine Nitrite NEG Urine Bilirubin NEG Urine Urobilinogen 2.0 MG/DL Urine Leukocyte Esterase NEG Urine RBC LESS THAN 1 /hpf Urine WBC 1 /hpf Urine Squamous Epithelial Cells <1 /hpf Urine Renal Epithelial Cells <1 /hpf Urine Bacteria OCC /hpf Urine Hyaline Casts 6 /lpf Urine Mucus FEW /lpf Microscopic Urinalysis Comment CATH-CULTURE IND Blood Urea Nitrogen 12 MG/DL Creatinine 0.72 MG/DL Random Glucose 92 MG/DL Total Protein 7.0 GM/DL Albumin 2.9 GM/DL Calcium Level 9.0 MG/DL Alkaline Phosphatase 211 U/L Aspartate Amino Transf (AST/SGOT) 23 U/L Alanine Aminotransferase (ALT/SGPT) 21 U/L Total Bilirubin 0.5 MG/DL Sodium Level 139 MEQ/L Potassium Level 3.5 MEQ/L Chloride Level 103 MEQ/L Carbon Dioxide Level 23.2 MEQ/L Anion Gap 13 MEQ/L Estimat Glomerular Filtration Rate 77 ML/MIN Total Creatine Kinase 51 U/L Troponin I LESS THAN 0.02 NG/ML MDM Medical Decision Making Medical Screen Exam Complete: Yes Emergency Medical Condition: Yes Interpretation(s) Last Impressions Head CT 05/03/171422 Signed Impressions: Service Date/Time: Wednesday, May 03, 2017 15:25 - CONCLUSION: 1. Stable senescent changes and small vessel ischemic white matter demyelination. 2. No acute intracranial abnormality. Vikash Hoffmann MD Chest X-Ray 05/03/171422 Signed Impressions: Service Date/Time: Wednesday, May 03, 2017 14:47 - CONCLUSION: No acute cardiopulmonary abnormality is identified. Mazin Newman MD Maxillofacial CT 05/03/17 0000 Signed Impressions: Service Date/Time: Wednesday, May 03, 2017 15:26 - CONCLUSION: Minimally displaced bilateral nasal bone fractures with adjacent soft tissue swelling. No other acute maxillofacial fracture is identified. Mazin Newman MD Cervical Spine CT 05/03/17 0000 Signed Impressions: Service Date/Time: Wednesday, May 03, 2017 15:26 - CONCLUSION: 1. No acute cervical spine abnormality is identified. There is multilevel degenerative disc disease. 2. Mild centrilobular emphysema at the lung apices. Mazin Newman MD Laboratory Tests Test 05/03/17 14:30 White Blood Count 8.1 TH/MM3 Red Blood Count 5.16 MIL/MM3 Hemoglobin 13.0 GM/DL Hematocrit 40.0 % Mean Corpuscular Volume 77.4 FL Mean Corpuscular Hemoglobin 25.2 PG Mean Corpuscular Hemoglobin Concent 32.5 % Red Cell Distribution Width 20.6 % Platelet Count 336 TH/MM3 Mean Platelet Volume 7.9 FL Neutrophils (%) (Auto) 76.6 % Lymphocytes (%) (Auto) 16.7 % Monocytes (%) (Auto) 4.5 % Eosinophils (%) (Auto) 1.1 % Basophils (%) (Auto) 1.1 % Neutrophils # (Auto) 6.2 TH/MM3 Lymphocytes # (Auto) 1.3 TH/MM3 Monocytes # (Auto) 0.4 TH/MM3 Eosinophils # (Auto) 0.1 TH/MM3 Basophils # (Auto) 0.1 TH/MM3 CBC Comment DIFF FINAL Differential Comment Prothrombin Time 11.6 SEC Prothromb Time International Ratio 1.0 RATIO Activated Partial Thromboplast Time 27.7 SEC Urine Color YELLOW Urine Turbidity CLEAR Urine pH 6.0 Urine Specific [place] 1.022 Urine Protein 30 mg/dL Urine Glucose (UA) NEG mg/dL Urine Ketones 80 mg/dL Urine Occult Blood NEG Urine Nitrite NEG Urine Bilirubin NEG Urine Urobilinogen 2.0 MG/DL Urine Leukocyte Esterase NEG Urine RBC LESS THAN 1 /hpf Urine WBC 1 /hpf Urine Squamous Epithelial Cells <1 /hpf Urine Renal Epithelial Cells <1 /hpf Urine Bacteria OCC /hpf Urine Hyaline Casts 6 /lpf Urine Mucus FEW /lpf Microscopic Urinalysis Comment CATH-CULTURE IND Blood Urea Nitrogen 12 MG/DL Creatinine 0.72 MG/DL Random Glucose 92 MG/DL Total Protein 7.0 GM/DL Albumin 2.9 GM/DL Calcium Level 9.0 MG/DL Alkaline Phosphatase 211 U/L Aspartate Amino Transf (AST/SGOT) 23 U/L Alanine Aminotransferase (ALT/SGPT) 21 U/L Total Bilirubin 0.5 MG/DL Sodium Level 139 MEQ/L Potassium Level 3.5 MEQ/L Chloride Level 103 MEQ/L Carbon Dioxide Level 23.2 MEQ/L Anion Gap 13 MEQ/L Estimat Glomerular Filtration Rate 77 ML/MIN Total Creatine Kinase 51 U/L Troponin I LESS THAN 0.02 NG/ML Vital Signs Date Time Temp Pulse Resp B/P (MAP) Pulse Ox O2 Delivery O2 Flow Rate FiO2 05/03/17 14:16 98.1 96 20 152/92 (112) 98 Differential Diagnosis CVA versus TIA versus fracture versus metabolic abnormality versus UTI versus other Narrative Course Patient is an 81-year-old female who presented to the emergency department after sustaining a mechanical fall that was unwitnessed last night. This morning she was exhibiting strokelike symptoms which prompted her visit to the emergency department. On exam patient has right-sided weakness. Patient has dementia and is confused at baseline. Labs and imaging ordered and pending. Daughter at bedside. Patient's vital signs are stable. IV access established, patient placed on quality assurance monitor and continuous pulse oximetry. EKG shows sinus rhythm with short MS interval with a ventricular rate of 92. Chest x-ray shows no acute disease CT scan of the brain shows stable status and changes and small vessel ischemic white matter demyelination. No acute intracranial abnormality noted. CT the cervical spine which was also read by the radiologist shows no acute cervical spine abnormality, they're multiplied level degenerative disc disease. Mild centrilobular emphysema at the lung apices. Maxillofacial CT which was also read by the radiologist shows minimally displaced bilateral nasal bone fractures with adjacent soft tissue swelling. No other acute Maxillofacial fractures identified. CBC reviewed, no acute abdomen is identified. Cardiac enzymes are negative 1 set, chemistry is unremarkable Urinalysis with reflex culture pending. Occasional bacteria, few mucus, 80 ketones and 30 protein. We'll defer treatment until culture results. Coags reviewed and are unremarkable. Patient is at rest comfortable, her vital signs remained stable. Daughter was discussing with case management possible hospice care. Discussed with Dr. Bazan who accepted admission. Also discussed with him the possibility of ordering an MRI of the brain and neck. We'll defer further imaging to hospitalist service. Diagnosis Primary Impression: Syncopal episodes Qualified Codes: R55 - Syncope and collapse Additional Impressions: Neurological deficit present Nasal bone fracture Qualified Codes: S02.2XXA - Fracture of nasal bones, initial encounter for closed fracture Dementia Qualified Codes: F03.90 - Unspecified dementia without behavioral disturbance Facial contusion Qualified Codes: S00.83XA - Contusion of other part of head, initial encounter Acute right-sided weakness Admitting Information Admitting Physician Requests: Admit Condition: Stable Arminda Vallejo May 03, 2017 14:31
[2017-05-03 14:51] LABS: AUTOMATED NEUTROPHIL # 6.2 TH/MM3 (1.8-7.7); BASOPHIL # 0.1 TH/MM3 (0-0.2); BASOPHIL % 1.1 % (0.0-2.0); EOSINOPHIL # 0.1 TH/MM3 (0-0.4); EOSINOPHIL % 1.1 % (0.0-4.0); HEMO FLAGS DIFF FINAL; LYMPH % 16.7 % (9.0-44.0); LYMPHOCYTE # 1.3 TH/MM3 (1.0-4.8); MEAN CELL VOLUME 77.4 FL (80.0-100.0); MEAN CORPUSCULAR HEMOGLOBIN 25.2 PG (27.0-34.0); MEAN CORPUSCULAR HGB CONC 32.5 % (32.0-36.0); MONO % 4.5 % (0.0-8.0); NEUT % 76.6 % (16.0-70.0); PLATELET COUNT 336 TH/MM3 (150-450); RED BLOOD COUNT 5.16 MIL/MM3 (4.00-5.30); RED CELL DISTRIBUTION WIDTH 20.6 % (11.6-17.2); WHITE BLOOD COUNT 8.1 TH/MM3 (4.0-11.0)
[2017-05-03 14:54] LABS: BACTERIA, URINE OCC /hpf; BLOOD, URINE NEG (NEG); GLUCOSE,URINE NEG (NEG); HYALINE CAST, URINE 6 /lpf (RARE); KETONE, URINE 80 mg/dL (NEG); MUCUS URINE FEW /lpf (OCC); NITRITE,URINE NEG (NEG); RENAL EPITHELIAL CELLS <1 /hpf; SQUAMOUS EPITHELIAL CELL URINE <1 /hpf (0-5); URINE COLOR YELLOW (YELLW/STRAW)
[2017-05-03 15:00] LABS: COMMENT (UR) CATH-CULTURE IND; CULTURE IF INDICATED CATH CULTURE IND
--- NOTE | 2017-05-03 15:00 | RADRPT ---
EXAM DATE/TIME: 05/03/2017 14:47 [facility] COMPARISON: No previous studies available for comparison. INDICATIONS : CVA. Patient fell and has right side weakness. MEDICAL HISTORY : None. Renal calculi. SURGICAL HISTORY : Appendectomy. ENCOUNTER: Initial ACUITY: 2 days PAIN SCORE: 0/10 LOCATION: Bilateral chest FINDINGS: Portable AP view of the chest demonstrates a normal-sized cardiac silhouette with calcification of th e aorta. Lungs are underinflated. There is interstitial prominence at the lung bases. No effusion or pneumothorax is identified. Bones and soft tissues demonstrate no acute finding. There has been prior kyphoplasty. CONCLUSION: No acute cardiopulmonary abnormality is identified. Mazin Newman MD on May 03, 2017 at 14:57 Board Certified Radiologist. This report was verified electronically.
[2017-05-03 15:02] LABS: APTT (PATIENT) 27.7 SEC (24.3-30.1); PROTHROMBIN TIME - PATIENT 11.6 SEC (9.8-11.6)
[2017-05-03] MEDS ORDERED: LORA0.5T PO (15:04)
[2017-05-03] MEDS ORDERED: TRAZ50TA12 PO (15:04)
[2017-05-03] MEDS ORDERED: QUET1TAB7 PO (15:04)
[2017-05-03 15:06] LABS: ALT (GPT) 21 U/L (10-53); ANION GAP 13 MEQ/L (5-15); AST (GOT) 23 U/L (15-37); BICARBONATE 23.2 MEQ/L (21.0-32.0); BLOOD UREA NITROGEN 12 MG/DL (7-18); CHLORIDE 103 MEQ/L (98-107); GLOMERULAR FILTRATION RATE 77 ML/MIN (>89); POTASSIUM 3.5 MEQ/L (3.5-5.1); SODIUM (NA) 139 MEQ/L (136-145)
[2017-05-03 15:09] LABS: ALKALINE PHOSPHATASE 211 U/L (45-117); TOTAL BILIRUBIN ADULT 0.5 MG/DL (0.2-1.0)
[2017-05-03 15:13] LABS: CREATINE KINASE 51 U/L (26-192)
--- NOTE | 2017-05-03 15:30 | PD ---
Physical Exam Date Seen by Provider: May 03, 2017 Narrative Patient was sent to us for strokelike symptoms. The patient reportedly fell out of bed last night striking her face. On awakening this morning, she was not moving her right leg as usual. She was subsequently brought to the hospital for further evaluation. Data Data Last Documented VS Vital Signs Date Time Temp Pulse Resp B/P (MAP) Pulse Ox O2 Delivery O2 Flow Rate FiO2 05/03/17 14:16 98.1 96 20 152/92 (112) 98 Orders Orders Electrocardiogram (05/03/17 14:23) Prothrombin Time / Inr (Pt) (05/03/17 14:23) Act Partial Throm Time (Ptt) (05/03/17 14:23) Complete Blood Count With Diff (05/03/17:) Comprehensive Metabolic Panel (05/03/17:) Creatine Kinase (Cpk) (05/03/17 14:23) Urinalysis - C+S If Indicated (05/03/17 14:23) Ct Brain W/O Iv Contrast(Rout) (05/03/17 14:23) Chest, Single Ap (05/03/17 14:23) Ecg Monitoring (05/03/17 14:23) Iv Access Insert/Monitor (05/03/17 14:23) Oximetry (05/03/17 14:23) Cath For Specimen (05/03/17 14:23) Sodium Chloride 0.9% Flush (Ns Flush) (05/03/17 14:30) Ct Cerv Spine W/O Contrast (05/03/17 ) Ct Facial Bones W/O Iv Cont (05/03/17 ) Troponin I (05/03/17 14:23) Urine Culture (05/03/17 14:30) Labs Laboratory Tests Test 05/03/17 14:30 White Blood Count 8.1 TH/MM3 Red Blood Count 5.16 MIL/MM3 Hemoglobin 13.0 GM/DL Hematocrit 40.0 % Mean Corpuscular Volume 77.4 FL Mean Corpuscular Hemoglobin 25.2 PG Mean Corpuscular Hemoglobin Concent 32.5 % Red Cell Distribution Width 20.6 % Platelet Count 336 TH/MM3 Mean Platelet Volume 7.9 FL Neutrophils (%) (Auto) 76.6 % Lymphocytes (%) (Auto) 16.7 % Monocytes (%) (Auto) 4.5 % Eosinophils (%) (Auto) 1.1 % Basophils (%) (Auto) 1.1 % Neutrophils # (Auto) 6.2 TH/MM3 Lymphocytes # (Auto) 1.3 TH/MM3 Monocytes # (Auto) 0.4 TH/MM3 Eosinophils # (Auto) 0.1 TH/MM3 Basophils # (Auto) 0.1 TH/MM3 CBC Comment DIFF FINAL Differential Comment Prothrombin Time 11.6 SEC Prothromb Time International Ratio 1.0 RATIO Activated Partial Thromboplast Time 27.7 SEC Urine Color YELLOW Urine Turbidity CLEAR Urine pH 6.0 Urine Specific [place] 1.022 Urine Protein 30 mg/dL Urine Glucose (UA) NEG mg/dL Urine Ketones 80 mg/dL Urine Occult Blood NEG Urine Nitrite NEG Urine Bilirubin NEG Urine Urobilinogen 2.0 MG/DL Urine Leukocyte Esterase NEG Urine RBC LESS THAN 1 /hpf Urine WBC 1 /hpf Urine Squamous Epithelial Cells <1 /hpf Urine Renal Epithelial Cells <1 /hpf Urine Bacteria OCC /hpf Urine Hyaline Casts 6 /lpf Urine Mucus FEW /lpf Microscopic Urinalysis Comment CATH-CULTURE IND Blood Urea Nitrogen 12 MG/DL Creatinine 0.72 MG/DL Random Glucose 92 MG/DL Total Protein 7.0 GM/DL Albumin 2.9 GM/DL Calcium Level 9.0 MG/DL Alkaline Phosphatase 211 U/L Aspartate Amino Transf (AST/SGOT) 23 U/L Alanine Aminotransferase (ALT/SGPT) 21 U/L Total Bilirubin 0.5 MG/DL Sodium Level 139 MEQ/L Potassium Level 3.5 MEQ/L Chloride Level 103 MEQ/L Carbon Dioxide Level 23.2 MEQ/L Anion Gap 13 MEQ/L Estimat Glomerular Filtration Rate 77 ML/MIN Total Creatine Kinase 51 U/L Troponin I LESS THAN 0.02 NG/ML MDM Supervised Visit with DOMINGO: Yes Narrative Course I, Dr. Astudillo, have reviewed the advance practice practitioner's documentation and am in agreement, met with the patient face to face, made the diagnosis, and the medical decision making was done by me. *My assessment and Findings: Patient was sleeping. She was easily arousable. She has a contusion on the right side of her face. Please see Arminda Aguilera NP's note for results of laboratory and radiographic evaluation, ED course, final diagnosis and disposition Criss Astudillo MD May 03, 2017 15:30
--- NOTE | 2017-05-03 16:02 | RADRPT ---
EXAM DATE/TIME: 05/03/2017 15:26 [facility] COMPARISON: No previous studies available for comparison. INDICATIONS : Fall yesterday. Right facial bruising. RADIATION DOSE: 23.34 CTDIvol (mGy) MEDICAL HISTORY : Hypertension. SURGICAL HISTORY : Appendectomy. ENCOUNTER: Initial ACUITY: 2 days PAIN SCALE: 4/10 LOCATION: Right facial TECHNIQUE: Volumetric scanning of the cervical spine was performed. Multiplanar reconstructions in the sagittal, coronal and oblique axial planes were performed. Using automated exposure control and adjustment o f the mA and/or kV according to patient size, radiation dose was kept as low as reasonably achievable to obtain optimal diagnostic quality images. DICOM format image data is available electronically f or review and comparison. FINDINGS: There is normal sagittal spine alignment of the cervical spine. No anterolisthesis or retrolisthesis is present. The atlantoaxial relationship is within normal limits. There is no prevertebral soft tiss ue swelling present. No fracture or dislocation is identified. There is decreased disc height at C3-C 4 through C6-C7. Small posterior disc osteophyte complexes are present, largest at C4-C5. The visualized portions of the posterior fossa, paraspinous soft tissues, and upper lung zones demons trate no acute abnormality. There are centrilobular emphysematous changes at the lung apices. CONCLUSION: 1. No acute cervical spine abnormality is identified. There is multilevel degenerative disc disease. 2. Mild centrilobular emphysema at the lung apices. Mazin Newamn MD on May 03, 2017 at 15:58 Board Certified Radiologist. This report was verified electronically.
--- NOTE | 2017-05-03 16:04 | RADRPT ---
EXAM DATE/TIME: 05/03/2017 15:25 [facility] COMPARISON: CT BRAIN W/O CONTRAST, March 28, 2017, 18:34. INDICATIONS : Fall yesterday. Right facial bruising. RADIATION DOSE: 56.35 CTDIvol (mGy) MEDICAL HISTORY : Hypertension. SURGICAL HISTORY : Appendectomy. ENCOUNTER: Initial ACUITY: 2 days PAIN SCALE: 4/10 LOCATION: Right facial TECHNIQUE: Multiple contiguous axial images were obtained of the head. Using automated exposure control and adj ustment of the mA and/or kV according to patient size, radiation dose was kept as low as reasonably a chievable to obtain optimal diagnostic quality images. DICOM format image data is available electro nically for review and comparison. FINDINGS: CEREBRUM: Moderate diffuse rugal volume loss. Prominent periventricular and diffuse white matter hypodensities similar to prior examination consistent with ischemic white matter demyelination. The ventricles are normal for age. No evidence of midline shift, mass lesion, hemorrhage or acute infarction. No extra -axial fluid collections are seen. POSTERIOR FOSSA: The cerebellum and brainstem are intact. The 4th ventricle is midline. The cerebellopontine angle i s unremarkable. EXTRACRANIAL: The visualized portion of the orbits is intact. SKULL: The calvaria is intact. No evidence of skull fracture. CONCLUSION: 1. Stable senescent changes and small vessel ischemic white matter demyelination. 2. No acute intracranial abnormality. Vikash Hoffmann MD on May 03, 2017 at 15:58 Board Certified Radiologist. This report was verified electronically.
--- NOTE | 2017-05-03 16:06 | RADRPT ---
EXAM DATE/TIME: 05/03/2017 15:26 [facility] COMPARISON: CT BRAIN W/O CONTRAST, May 03, 2017, 15:25. INDICATIONS : Fall yesterday. Right facial bruising. RADIATION DOSE: 26.35 CTDIvol (mGy) MEDICAL HISTORY : Hypertension. SURGICAL HISTORY : Appendectomy. ENCOUNTER: Initial ACUITY: 2 days PAIN SCORE: 4/10 LOCATION: Right facial TECHNIQUE: Volumetric scanning of the facial bones was performed. Using automated exposure control and adjustme nt of the mA and/or kV according to patient size, radiation dose was kept as low as reasonably achiev able to obtain optimal diagnostic quality images. DICOM format image data is available electronicall y for review and comparison. FINDINGS: ORBITS: The orbital structures are intact. The retroconal structures have a normal configuration. No radiop aque foreign bodies are seen. The lenses are normally located. NASAL BONE: There are bilateral minimally displaced nasal bone fractures with adjacent soft tissue swelling. ZYGOMATIC ARCHES: Symmetric without evidence of fracture. SINUSES: The maxillary, ethmoid, and frontal sinuses are clear. No air-fluid levels seen. NASAL CAVITY: The nasal septum is minimally deviated to the left. The lacrimal ducts are intact. SOFT TISSUES: No radiopaque foreign bodies seen. There is mild soft tissue swelling adjacent to the nasal bone frac tures. INTRACRANIAL: No acute intracranial abnormality is seen. OTHER: The mandible and pterygoid plates are intact. CONCLUSION: Minimally displaced bilateral nasal bone fractures with adjacent soft tissue swelling. No other acute maxillofacial fracture is identified. Mazin Newman MD on May 03, 2017 at 16:01 Board Certified Radiologist. This report was verified electronically.
[2017-05-03 16:18] VITALS: BP 138/81; PULSE 72; RESP 18; O2SAT 97
[2017-05-03] MEDS ORDERED: DEXTROSE 50% IN WATER 50 ML VIAL(D50) IV PUSH PRN (18:15)
[2017-05-03] MEDS: ASPIRIN 325 MG TAB PO SCH (18:15)
[2017-05-03] MEDS ORDERED: GLUCAGON 1 MG/ML VIAL OTHER PRN (18:15)
[2017-05-03] MEDS ORDERED: SODIUM CHLORIDE 0.9% FLUSH 5 ML FLUSH IV FLUSH PRN (18:15)
[2017-05-03] MEDS ORDERED: ENALAPRILAT 1.25 MG/ML VIAL IV PUSH PRN (18:15)
--- NOTE | 2017-05-03 20:38 | RADRPT ---
EXAM DATE/TIME: 05/03/2017 19:38 [facility] COMPARISON: No previous studies available for comparison. INDICATIONS : Right sided weakness. Fall MEDICAL HISTORY : Dementia. Anxiety, Glaucoma, Kidney Stones SURGICAL HISTORY : Appendectomy. Tonsillectomy. Adenoids, Kyphoplasty ENCOUNTER: Initial ACUITY: 1 day PAIN SCORE: Nonresponsive. LOCATION: cranial TECHNIQUE: Multiplanar, multisequence MRI of the brain was performed without contrast. FINDINGS: Examination is motion degraded. CEREBRUM: Atrophy. The ventricles are normal for age. No evidence of midline shift, mass lesion, hemorrhage or acute infarction. No extraaxial fluid collections are seen. The pituitary gland and suprasellar ci benson are normal in configuration. WHITE MATTER: Extensive periventricular high flair signal on amount involving both cerebral hemispheres. POSTERIOR FOSSA: The cerebellum and brainstem are intact. The 4th ventricle is midline. The cerebellopontine angle is unremarkable. The cerebellar tonsils are normal in position. DIFFUSION IMAGING: No focal areas of restricted diffusion are seen. No evidence of acute infarction. EXTRACRANIAL: The visualized portions of the orbits and paranasal sinuses are unremarkable. CONCLUSION: 1. Motion degraded exam. 2. No acute infarction. 3. Atrophy and chronic small vessel ischemic change. Demarco Ding Jr., MD on May 03, 2017 at 20:34 Board Certified Radiologist. This report was verified electronically.
[2017-05-03 20:45] VITALS: BP 131/82; PULSE 85; RESP 19; TEMP 97.9; O2SAT 96
[2017-05-03] MEDS: INSULIN ASPART SUPPLEMENTAL SCALE SQ SCH (21:00)
[2017-05-03] MEDS: SODIUM CHLORIDE 0.9% FLUSH 5 ML FLUSH IV FLUSH SCH (21:00)
--- NOTE | 2017-05-03 21:00 | RADRPT ---
EXAM DATE/TIME: 05/03/2017 19:38 [facility] COMPARISON: No previous studies available for comparison. INDICATIONS : Radiculopathy MEDICAL HISTORY : Dementia. Anxiety, Glaucoma, Kidney Stones SURGICAL HISTORY : Tonsillectomy. Appendectomy. Adenoids, Kyphoplasty ENCOUNTER: Initial ACUITY: 1 day PAIN SCORE: Nonresponsive. LOCATION: Cervical TECHNIQUE: Multiplanar, multisequence MRI examination of the cervical spine was performed. FINDINGS: Examination is degraded by motion artifact. VERTEBRAE: Normal vertebral body height. Homogeneous marrow signal. ALIGNMENT: No evidence of subluxation. CORD: Normal configuration and signal. POST FOSSA: The cerebellar tonsils are normal in position. C2-C3: The thecal sac has a normal configuration. There is no evidence of disc herniation or spinal canal s tenosis. The neural foramina are patent bilaterally. C3-C4: Is a mild broad-based disc bulge. No central canal stenosis or abutment of the cord. Neural foramina are grossly patent. C4-C5: There is a broad-based disc osteophyte complex that just touches the ventral portion of the cord with out appreciable flattening. Neural foramina are grossly patent. C5-C6: A mild broad-based disc bulge eccentric to the left without abutment of the cord or central canal jeromy nosis. Narrowing of the left lateral recess. Right lateral recess is patent. Neural foramina are mimi sly patent. C6-C7: The thecal sac has a normal configuration. There is no evidence of disc herniation or spinal canal s tenosis. The neural foramina are patent bilaterally. C7-T1: The thecal sac has a normal configuration. There is no evidence of disc herniation or spinal canal s tenosis. The neural foramina are patent bilaterally. CONCLUSION: 1. Study is degraded by motion artifact. 2. Degenerative changes most pronounced at C4-C5 where there is abutment of the cord. No gross signal change within the cord. Demarco Ding Jr., MD on May 03, 2017 at 20:55 Board Certified Radiologist. This report was verified electronically.
[2017-05-03] MEDS: ATORVASTATIN 10 MG TAB PO SCH (22:31)
[2017-05-03] MEDS: ENOXAPARIN SODIUM 40 MG/0.4 ML SYRINGE SQ SCH (22:31)
[2017-05-03 23:13] VITALS: PULSE 71
[2017-05-04] VITALS (7 sets, daily range): BP systolic 125–155; BP diastolic 75–93; PULSE 67–89; RESP 16–20; TEMP 97.5–98.7; O2SAT 97–98
[2017-05-04 00:12] LABS: CREATINE KINASE 41 U/L (26-192)
--- NOTE | 2017-05-04 06:05 | HHI.HP ---
HPI Service [facility] Primary Care Physician No Primary Care Physician Admission Diagnosis SYNCOPE, R/O CVA Diagnoses: Travel History International Travel<30 Days: No Contact w/Intl Traveler <30 Da: No Traveled to Known Affected Are: No History of Present Illness hx from ER communication, review of med records, and minimally from patient pt is very sleepy during interview and exam poor historian denies all symptoms apart from saying " I think so" when asked whether she was dizzy, or passed out reports no medical issues reports no surgery hx Review of Systems ROS Limitations: Poor Historian Except as stated in HPI: all other systems reviewed are Neg Past Family Social History Allergies: Uncoded Allergies: THROAT SPRAY (Allergy, Severe, 01/27/10) Physical Exam Vital Signs Vital Signs Date Time Temp Pulse Resp B/P (MAP) Pulse Ox O2 Delivery O2 Flow Rate FiO2 05/04/17 00:45 98.7 89 20 127/93 (104) 97 05/03/17 23:13 71 05/03/17 22:15 05/03/17 20:45 97.9 85 19 131/82 (98) 96 05/03/17 16:18 72 18 138/81 (100) 97 Room Air 05/03/17 14:16 98.1 96 20 152/92 (112) 98 Physical Exam GENERAL: This is a well-nourished, well-developed patient, in no apparent distress. SKIN: No rashes, ecchymoses or lesions. Cool and dry. HEAD: Atraumatic. Normocephalic. No temporal or scalp tenderness. EYES: No scleral icterus. No injection or drainage. ENT: Nose without bleeding, purulent drainage or septal hematoma. Airway patent. NECK: Trachea midline. No JVD CARDIOVASCULAR: Regular rate and rhythm without murmurs, gallops, or rubs. RESPIRATORY: Clear to auscultation. Breath sounds equal bilaterally. No wheezes , rales, or rhonchi. GASTROINTESTINAL: Abdomen soft, non-tender, nondistended. No guarding. MUSCULOSKELETAL: Extremities without clubbing, cyanosis, or edema. No calf tenderness. NEUROLOGICAL: Awake , seems alert, but poor historian, Motor and sensory grossly within normal limits. Normal speech. Laboratory Laboratory Tests Test 05/03/17 14:30 05/03/17 23:03 White Blood Count 8.1 Red Blood Count 5.16 Hemoglobin 13.0 Hematocrit 40.0 Mean Corpuscular Volume 77.4 Mean Corpuscular Hemoglobin 25.2 Mean Corpuscular Hemoglobin Concent 32.5 Red Cell Distribution Width 20.6 Platelet Count 336 Mean Platelet Volume 7.9 Neutrophils (%) (Auto) 76.6 Lymphocytes (%) (Auto) 16.7 Monocytes (%) (Auto) 4.5 Eosinophils (%) (Auto) 1.1 Basophils (%) (Auto) 1.1 Neutrophils # (Auto) 6.2 Lymphocytes # (Auto) 1.3 Monocytes # (Auto) 0.4 Eosinophils # (Auto) 0.1 Basophils # (Auto) 0.1 CBC Comment DIFF FINAL Differential Comment Prothrombin Time 11.6 Prothromb Time International Ratio 1.0 Activated Partial Thromboplast Time 27.7 Urine Color YELLOW Urine Turbidity CLEAR Urine pH 6.0 Urine Specific [place] 1.022 Urine Protein 30 Urine Glucose (UA) NEG Urine Ketones 80 Urine Occult Blood NEG Urine Nitrite NEG Urine Bilirubin NEG Urine Urobilinogen 2.0 Urine Leukocyte Esterase NEG Urine RBC LESS THAN 1 Urine WBC 1 Urine Squamous Epithelial Cells <1 Urine Renal Epithelial Cells <1 Urine Bacteria OCC Urine Hyaline Casts 6 Urine Mucus FEW Microscopic Urinalysis Comment CATH-CULTURE IND Blood Urea Nitrogen 12 Creatinine 0.72 Random Glucose 92 Total Protein 7.0 Albumin 2.9 Calcium Level 9.0 Alkaline Phosphatase 211 Aspartate Amino Transf (AST/SGOT) 23 Alanine Aminotransferase (ALT/SGPT) 21 Total Bilirubin 0.5 Sodium Level 139 Potassium Level 3.5 Chloride Level 103 Carbon Dioxide Level 23.2 Anion Gap 13 Estimat Glomerular Filtration Rate 77 Total Creatine Kinase 51 41 Troponin I LESS THAN 0.02 LESS THAN 0.02 Date/Time Source Procedure Growth Status 05/03/17 14:30 Urine Catheterized Urine Urine Culture Pending Received Result Diagram: 05/03/17 1430 05/03/17 143 Caprini VTE Risk Assessment Caprini VTE Risk Assessment: Mod/High Risk (score >= 2) Caprini Risk Assessment Model Point Value = 1 Point Value = 2 Point Value = 3 Point Value = 5 Age 41-60 Minor surgery BMI > 25 kg/m2 Swollen legs Varicose veins or History of unexplained or recurrent spontaneous Oral contraceptives or hormone replacement Sepsis (< 1 month) Serious lung disease, including pneumonia (< 1 month) Abnormal pulmonary function Acute myocardial infarction Congestive heart failure (< 1 month) History of inflammatory bowel disease Medical patient at bed rest Age 61-74 Arthroscopic surgery Major open surgery (> 45 min) Laparoscopic surgery (> 45 min) Malignancy Confined to bed (> 72 hours) Immobilizing plaster cast Central venous access Age >= 75 History of VTE Family history of VTE Factor V Leiden Prothrombin [id number] Lupus anticoagulant Anticardiolipin antibodies Elevated serum homocysteine Heparin-induced thrombocytopenia Other congenital or acquired thrombophilia Stroke (< 1 month) Elective arthroplasty Hip, pelvis, or leg fracture Acute spinal cord injury (< 1 month) Prophylaxis Regimen Total Risk Factor Score Risk Level Prophylaxis Regimen 0-1 Low Early ambulation 2 Moderate Order ONE of the following: *Sequential Compression Device (SCD) *Heparin 5000 units SQ BID 3-4 Higher Order ONE of the following medications: *Heparin 5000 units SQ TID *Enoxaparin/Lovenox 40 mg SQ daily (WT < 150 kg, CrCl > 30 mL/min) *Enoxaparin/Lovenox 30 mg SQ daily (WT < 150 kg, CrCl > 10-29 mL/min) *Enoxaparin/Lovenox 30 mg SQ BID (WT < 150 kg, CrCl > 30 mL/min) AND/OR *Sequential Compression Device (SCD) 5 or more Highest Order ONE of the following medications: *Heparin 5000 units SQ TID (Preferred with Epidurals) *Enoxaparin/Lovenox 40 mg SQ daily (WT < 150 kg, CrCl > 30 mL/min) *Enoxaparin/Lovenox 30 mg SQ daily (WT < 150 kg, CrCl > 10-29 mL/min) *Enoxaparin/Lovenox 30 mg SQ BID (WT < 150 kg, CrCl > 30 mL/min) AND *Sequential Compression Device (SCD) Assessment and Plan Assessment and Plan Impression: TIA s/p fall and possible syncope with bilateral perioribital echymosis Minimally displaced bilateral nasal bone fractures with adjacent soft tissue swelling abnormal UA Plan: neurochecks permissive htn MRI Brain reports noted no acute infarct echo in am carotid sono fall precautions PT consult neuro consult will need colateral info from family in am will follow urine cx results Discussed Condition With patient, ER MD, nursing staff Physician Certification Order for Inpatient Services The services are ordered in accordance with Medicare regulations or non- Medicare payer requirements, as applicable. In the case of services not specified as inpatient-only, they are appropriately provided as inpatient services in accordance with the 2-midnight benchmark. days is the estimated time the patient will need to remain in the hospital, assuming treatment plan goals are met and no additional complications. Chaitanya Bowden MD May 04, 2017 06:05
[2017-05-04] MEDS: INSULIN ASPART SUPPLEMENTAL SCALE SQ SCH ×4 (08:00→21:00)
[2017-05-04] MEDS: SODIUM CHLORIDE 0.9% FLUSH 5 ML FLUSH IV FLUSH SCH ×2 (09:00→21:00)
--- NOTE | 2017-05-04 09:48 | RADRPT ---
EXAM DATE/TIME: 05/04/2017 08:06 [facility] COMPARISON: No previous studies available for comparison. INDICATIONS : Cerebrovascular accident. MEDICAL HISTORY : Renal calculi. Dementia. Hypertension. Glaucoma. Anxiety. SURGICAL HISTORY : Appendectomy. Tonsillectomy. ENCOUNTER: Initial ACUITY: 1 day PAIN SCORE: 0/10 LOCATION: Bilateral neck PEAK SYSTOLIC VELOCITIES (cm/sec): ICA/CCA RATIO: Right: 1.4 Left: 1.2 ICA: Right: 98 Left: 64 CCA: Right: 70 Left: 55 ECA: Right: 45 Left: 52 VERTEBRAL: Right: 39 antegrade Left: 36 antegrade Elevated flow velocities and ICA/CCA ratios have been found to correlate with increased degrees of vessel stenosis, calculated as percentage of diameter relative to a normal segment of distal ICA/CCA FINDINGS: RIGHT CAROTID: No significant stenosis is visualized. The waveforms are within normal limits. LEFT CAROTID: No significant stenosis is visualized. There is minimal noncalcified plaque in the carotid bulb. The waveforms are within normal limits. VERTEBRAL ARTERIES: Antegrade flow is seen in both vertebral arteries. MISCELLANEOUS: None. CONCLUSION: 1. No significant atherosclerotic disease or stenosis is present within either internal carotid arter y. 2. There is antegrade blood flow within both vertebral arteries. Mazin Newman MD on May 04, 2017 at 9:45 Board Certified Radiologist. This report was verified electronically.
--- NOTE | 2017-05-04 09:59 | EKG ---
Date Performed: 05/03/2017 Time Performed: 14:58:16 PTAGE: 81 years EKG: Sinus rhythm WITH SHORT [place] INTERVAL MARKED LEFT AXIS DEVIATION ABNORMAL ECG WARNING: DATA QUALITY MAY AFFECT INTE RPRETATION PREVIOUS TRACING : 03/28/2017 14.23 DOCTOR: Lopez Pardo Interpretating Date/Time 05/04/2017 09:58:22
[2017-05-04 10:13] LABS: HDL CHOLESTEROL 52.7 MG/DL (40.0-60.0); LDL CHOLESTEROL 54 MG/DL (0-99)
[2017-05-04 10:15] LABS: CREATINE KINASE 38 U/L (26-192)
[2017-05-04] MEDS: ASPIRIN 325 MG TAB PO SCH (11:52)
--- NOTE | 2017-05-04 14:52 | HHI.PR ---
Subjective Remarks Follow-up for syncope Patient stated that she did not want to talk to me at the moment she is confused. When I asked patient if she knew her name and location she is able to tell me name and location. When I asked patient that even though she is confused if she is able to talk to me she said why not. When asked patient what happened she stated that she does not know what happened she was confused. She asked me to come back later when she is well rested to ask her further questions. She denies any pain. Denies any chest pain, palpitation, shortness of breathing, lightheaded or dizziness. Patient eyelid are red and when I asked patient if her eyelids were always red like that she stated that she doesn 't get enough sleep and that is why. Objective Vitals Vital Signs Date Time Temp Pulse Resp B/P (MAP) Pulse Ox O2 Delivery O2 Flow Rate FiO2 05/04/17 13:12 98.1 74 16 127/84 (98) 98 05/04/17 09:52 97.6 83 18 138/90 (106) 97 05/04/17 06:00 98.1 80 20 125/80 (95) 97 05/04/17 00:45 98.7 89 20 127/93 (104) 97 05/03/17 23:13 71 05/03/17 22:15 05/03/17 20:45 97.9 85 19 131/82 (98) 96 05/03/17 16:18 72 18 138/81 (100) 97 Room Air I/O 05/03/17 05/03/17 05/03/17 05/04/17 05/04/17 05/04/17 07:00 15:00 23:00 07:00 15:00 23:00 Intake Total 100 ml 400 ml Balance 100 ml 400 ml Intake Oral 100 ml 400 ml # Voids 2 4 # Bowel Movements 0 0 Result Diagram: 05/03/17 1430 05/03/17 1430 Objective Remarks GENERAL: in NAD SKIN: Warm and dry. HEAD: Normocephalic. EYES: No scleral icterus. No injection or drainage. Upper and lower eyelid coloration is reddish. Does have ecchymosis around the left upper cheek. NECK: Supple, trachea midline. No JVD or lymphadenopathy. CARDIOVASCULAR: Regular rate and rhythm without murmurs, gallops, or rubs. RESPIRATORY: Breath sounds equal bilaterally. No accessory muscle use. GASTROINTESTINAL: Abdomen soft, non-tender, nondistended. MUSCULOSKELETAL: No cyanosis, or edema. NEURO: Grossly moves all extremities and sensation is grossly intact. Medications and IVs Current Medications Sodium Chloride (NS Flush) 2 ml UNSCH PRN IVF FLUSH AFTER USING IV ACCESS; Start 05/03/17 at 14:30; Stop 05/03/17 at 20:27; Status DC IV Flush (NS Flush) 2 ml BID IV FLUSH Last administered on 05/04/17 09:00; Start 05/03/17 at 21:00 IV Flush (NS Flush) 2 ml UNSCH PRN IV FLUSH FLUSH AFTER USING IV ACCESS; Start 05/03/17 at 18:15 Enalaprilat (Vasotec Inj) 1.25 mg Q4H PRN IV PUSH For SBP > 220 or DBP > 120; Start 05/03/17 at 18:15 Aspirin (Aspirin) 325 mg DAILY PO Last administered on 05/04/17 11:52; Start 05/03/17 at 18:15 Atorvastatin Calcium (Lipitor) 10 mg HS PO Last administered on 05/03/17 22:31 ; Start 05/03/17 at 21:00 Insulin Aspart (NovoLOG SUPPLEMENTAL SCALE) 1 ACHS SQ ; Start 05/03/17 at 21:00 Dextrose (D50w (Vial) Inj) 50 ml UNSCH PRN IV PUSH HYPOGLYCEMIA-SEE COMMENTS; Start 05/03/17 at 18:15 Glucagon (Glucagon Inj) 1 mg UNSCH PRN OTHER HYPOGLYCEMIA-SEE COMMENTS; Start 05/03/17 at 18:15 Enoxaparin Sodium (Lovenox Inj) 40 mg Q24H SQ Last administered on 05/03/17 22 :31; Start 05/03/17 at 20:00 Acetaminophen (Tylenol) 500 mg Q6H PRN PO pain 3-10; Start 05/04/17 at 14:15; Status UNV A/P Assessment and Plan This is an 81-year-old female with syncopal episode Syncope -CT scan of brain negative. MRI of the brain is also negative. Carotid ultrasound negative. Labs reviewed only significant for possible UTI. Pending Echo. -Patient display no focal neurological deficits. No events over telemetry. Continue with telemetry. Asymptomatic bacteriuria -Urine cultures positive. Will start Rocephin. This may have caused her syncopal episode. She is a very poor historian. s/p fall and possible syncope with bilateral perioribital echymosis -Minimally displaced bilateral nasal bone fractures with adjacent soft tissue swelling Discharge Planning Patient continues will call her hospitalization pending further workup. Once she is medically stable for discharge PT recommends rehabilitation. Aimee Santoyo MD May 04, 2017 14:51
--- NOTE | 2017-05-04 15:53 | MB ---
cc: JIGNESH GARCIA M.D. DATE OF CONSULTATION: 05/04/2017 1933 REASON FOR CONSULTATION Possible stroke. HISTORY OF PRESENT ILLNESS The patient is a 81-year-old woman that is brought in for possible stroke-like symptoms, last seen normal last night. The daughter stated to the ER physician that the patient fell out of bed and was found on the floor, was put back in bed and when she woke up in the morning apparently was unable to ambulate to the bathroom and was not moving her leg, they do not state which. When the home health nurse arrived she recognized that possibly she was having a stroke or had a stroke. She does have a history of dementia. She is unable to tell me what happened. The patient actually tells me that she was outside and bumped into a wall and a neighbor found her. She does have bruising over her eyes bilaterally and face, otherwise she is unable to give me any history whatsoever. There is some report of a chronic cough for the last couple of days. She has a history of dementia, glaucoma, hypertension, nephrolithiasis, some balance issues over the last 6 months, osteoarthritis. PAST SURGICAL HISTORY Appendectomy, adenotonsillectomy. SOCIAL HISTORY Does not smoke, drink or use drugs. I believe lives with her daughter. ALLERGIES SOME TYPE OF THROAT SPRAY. MEDICATION Active medicines: 1. Trazodone 50 mg at night. 2. Lorazepam p.r.n. q.8 hours, 1/2 mg. 3. Seroquel 25 mg b.i.d. PHYSICAL EXAMINATION VITAL SIGNS: Temperature is 98.1, pulse 74, respiratory rate 16, blood pressure 127/84, sating at 98% on room air. NECK: Her neck is supple. I do not appreciate any bruits. HEART: Regular. NEURO: She is awake and alert. She knows she is in the hospital, cannot tell me the month, date. Her speech is slightly hypophonic but not dysarthric nor aphasic. Pupils are reactive. Face is symmetrical. She has discoloration with ecchymosis of the lower lids, cheek region. Motor-aguilera she holds both arms up. I do not see any significant weakness. She does not follow for cerebellar. DTRs are 1+. Toes she withdraws. Gait is withheld. LABORATORY DATA Her labs are reviewed. MCV 77.4, platelets 336,000. Coag panel was normal. Her chemistries GFR 77. Cardiac enzymes were negative. Alk phos 211, triglycerides 114, cholesterol 129, LDL 54, HDL 52.7. Urinalysis with 80 ketones, 30 protein. Culture is indicated. Gram-positive cocci in her urine. IMAGING STUDIES Carotid ultrasound showed no significant stenosis, antegrade flow in the vertebral arteries. Chest x-ray showed no acute disease. Brain MRI is motion degraded but there is no acute infarct, there is a lot of white matter disease noted and some ventriculomegaly. C-spine MRI showed degenerate changes, more pronounced C4-5 where there is some abutment of the cord, no signal change in the cord. IMPRESSION/PLAN A 81-year-old woman with baseline dementia, possibly fell out of bed, may have been due to her confusion. Certainly could have had a TIA. Her urine cultures are positive, she may have a UTI. Recommend in any case putting her on a baby aspirin if not already on one. She is getting an echocardiogram. Monitor her on telemetry. Continue ceftriaxone. I will go ahead and get an EEG just to make sure she is not having some seizure-like activity. Have PT, OT work with her. Hopefully discharge planning. Her lipids, LDL is 54, cholesterol 129, she does not need a statin. MD MIMA Lim/SONJA /3:28 PM /3:44 PM
[2017-05-04] MEDS: ACETAMINOPHEN 500 MG CPLT PO PRN (17:52)
[2017-05-04] MEDS: cefTRIAXone INJ 1,000 MG in SODIUM CHLORIDE 0.9% INJ 100 ML IV SCH (17:53)
[2017-05-04 17:59] LABS: HEMOGLOBIN A1b 1.5 %; HEMOGLOBIN Ao 85.5 %; HEMOGLOBIN LA1C 1.9 %; HEMOGLOBIN P3 5.2 %
--- NOTE | 2017-05-04 18:57 | ECHRPT ---
Indication: CVA/TIA CONCLUSIONS The left ventricular systolic function is normal with an estimated ejection fraction of 55%. Wall thickness is measured at the upper limits of normal. Normal left ventricular size. Mild aortic valve regurgitation. Calcification of the posterior mitral valve leaflet. There is mild tricuspid valve regurgitation. The estimated pulmonary arterial pressure is 31 mmHg. BP: 127 / 93 HR: 89 Rhythm: Sinus MEASUREMENTS (Male / Female) Normal Values Technical Quality:Fair 2D ECHO LV Diastolic Diameter PLAX 3.6 cm 4.2 - 5.9 / 3.9 - 5.3 cm LV Systolic Diameter PLAX 2.9 cm IVS Diastolic Thickness 0.9 cm 0.6 - 1.0 / 0.6 - 0.9 cm LVPW Diastolic Thickness 0.9 cm 0.6 - 1.0 / 0.6 - 0.9 cm LV Relative Wall Thickness 0.5 LVOT Diameter 1.6 cm LA Systolic Diameter LX 2.1 cm 3.0 - 4.0 / 2.7 - 3.8 cm M-MODE Aortic Root Diameter MM 3.0 cm AV Cusp Separation MM 2.0 cm DOPPLER AV Peak Velocity 136.0 cm/s AV Peak Gradient 7.4 mmHg AI Peak Velocity 434.0 cm/s AI Peak Gradient 75.3 mmHg AI Pressure Half Time 946.5 ms LVOT Peak Velocity 112.0 cm/s LVOT Peak Gradient 5.0 mmHg AV Area Cont Eq pk 1.7 cm Mitral E Point Velocity 59.2 cm/s Mitral A Point Velocity 82.4 cm/s Mitral E to A Ratio 0.7 LV E' Lateral Velocity 6.0 cm/s Mitral E to LV E' Lateral Ratio 9.8 LV E' Septal Velocity 5.1 cm/s Mitral E to LV E' Septal Ratio 11.7 TR Peak Velocity 227.0 cm/s TR Peak Gradient 20.6 mmHg Right Atrial Pressure 10.0 mmHg Pulmonary Artery Systolic Pressu 30.6 mmHg Right Ventricular Systolic Press 30.6 mmHg PV Peak Velocity 93.7 cm/s PV Peak Gradient 3.5 mmHg FINDINGS LEFT VENTRICLE The left ventricular systolic function is normal with an estimated ejection fraction of 55%. Wall thickness is measured at the upper limits of normal. Normal left ventricular size. RIGHT VENTRICLE Normal right ventricular size and systolic function. LEFT ATRIUM The left atrial size is normal. RIGHT ATRIUM The right atrial size is normal. ATRIAL SEPTUM Normal atrial septal thickness without atrial level shunting by limited color doppler interrogation. AORTA The aortic root and proximal ascending aorta are normal in size on limited imaging. MITRAL VALVE Calcification of the posterior mitral valve leaflet. AORTIC VALVE Mild aortic valve regurgitation. TRICUSPID VALVE There is mild tricuspid valve regurgitation. The estimated pulmonary arterial pressure is 30.6 mmHg. PULMONARY VALVE No pulmonary valve regurgitation or stenosis. VESSELS The inferior vena cava is normal in size. PERICARDIUM No pericardial effusion. Sudarshan Toscano MD, FACC (Electronically Signed) Final Date:04 May 2017 18:56
[2017-05-04] MEDS: ATORVASTATIN 10 MG TAB PO SCH (22:42)
[2017-05-04] MEDS: ENOXAPARIN SODIUM 40 MG/0.4 ML SYRINGE SQ SCH (22:42)
[2017-05-05] VITALS (7 sets, daily range): BP systolic 127–140; BP diastolic 65–92; PULSE 65–102; RESP 16–19; TEMP 97.8–98.7; O2SAT 92–98
[2017-05-05] MEDS: ACETAMINOPHEN 500 MG CPLT PO PRN ×2 (04:18→16:28)
[2017-05-05] MEDS: INSULIN ASPART SUPPLEMENTAL SCALE SQ SCH ×4 (08:00→21:00)
[2017-05-05] MEDS: SODIUM CHLORIDE 0.9% FLUSH 5 ML FLUSH IV FLUSH SCH ×2 (09:00→21:00)
--- NOTE | 2017-05-05 12:48 | HHI.PR ---
Subjective Remarks Follow for syncope Patient is AAO 3. She stated that she does not know how she got to the hospital. Patient stated that she is thankful that she was found. She denies any pain. Asking her to go to the restroom. Deny any chest pain, palpitation, service of breathing, lying his dizziness. Patient stated that she doesn't like she is doing a lot better. Objective Vitals Vital Signs Date Time Temp Pulse Resp B/P (MAP) Pulse Ox O2 Delivery O2 Flow Rate FiO2 05/05/17 09:35 98.3 65 16 130/72 (91) 92 05/05/17 05:55 97.9 102 18 136/92 (107) 97 05/05/17 00:18 98.4 89 18 140/85 (103) 97 05/04/17 20:30 97.9 67 18 155/84 (107) 97 05/04/17 17:41 97.5 87 17 128/75 (92) 98 05/04/17 13:12 98.1 74 16 127/84 (98) 98 I/O 05/04/17 05/04/17 05/04/17 05/05/17 05/05/17 05/05/17 07:00 15:00 23:00 07:00 15:00 23:00 Intake Total 400 ml 240 ml Balance 400 ml 240 ml Intake Oral 400 ml 240 ml # Voids 4 1 4 # Bowel Movements 0 Result Diagram: 05/03/17 1430 05/03/17 1430 Objective Remarks GENERAL: in NAD SKIN: Warm and dry. HEAD: Normocephalic. EYES: No scleral icterus. No injection or drainage. Upper and lower eyelid coloration is reddish that is improving. Does have ecchymosis around the left upper cheek that is improving. NECK: Supple, trachea midline. No JVD or lymphadenopathy. CARDIOVASCULAR: Regular rate and rhythm without murmurs, gallops, or rubs. RESPIRATORY: Breath sounds equal bilaterally. No accessory muscle use. GASTROINTESTINAL: Abdomen soft, non-tender, nondistended. MUSCULOSKELETAL: No cyanosis, or edema. NEURO: Grossly moves all extremities and sensation is grossly intact. AAO X3. Medications and IVs Current Medications Sodium Chloride (NS Flush) 2 ml UNSCH PRN IVF FLUSH AFTER USING IV ACCESS; Start 05/03/17 at 14:30; Stop 05/03/17 at 20:27; Status DC IV Flush (NS Flush) 2 ml BID IV FLUSH Last administered on 05/04/17 09:00; Start 05/03/17 at 21:00 IV Flush (NS Flush) 2 ml UNSCH PRN IV FLUSH FLUSH AFTER USING IV ACCESS; Start 05/03/17 at 18:15 Enalaprilat (Vasotec Inj) 1.25 mg Q4H PRN IV PUSH For SBP > 220 or DBP > 120; Start 05/03/17 at 18:15 Aspirin (Aspirin) 325 mg DAILY PO Last administered on 05/04/17 11:52; Start 05/03/17 at 18:15; Stop 05/04/17 at 16:14; Status DC Atorvastatin Calcium (Lipitor) 10 mg HS PO Last administered on 05/04/17 22:42 ; Start 05/03/17 at 21:00 Insulin Aspart (NovoLOG SUPPLEMENTAL SCALE) 1 ACHS SQ ; Start 05/03/17 at 21:00 Dextrose (D50w (Vial) Inj) 50 ml UNSCH PRN IV PUSH HYPOGLYCEMIA-SEE COMMENTS; Start 05/03/17 at 18:15 Glucagon (Glucagon Inj) 1 mg UNSCH PRN OTHER HYPOGLYCEMIA-SEE COMMENTS; Start 05/03/17 at 18:15 Enoxaparin Sodium (Lovenox Inj) 40 mg Q24H SQ Last administered on 05/04/17 22 :42; Start 05/03/17 at 20:00 Acetaminophen (Tylenol) 500 mg Q6H PRN PO pain 3-10 Last administered on 04:18; Start 05/04/17 at 14:15 Ceftriaxone Sodium 1000 mg/ Sodium Chloride 100 ml @ 200 mls/hr Q24H IV Last administered on 05/04/17 17:53; Start 05/04/17 at 16:00 Aspirin (Ecotrin Ec) 81 mg DAILY@1100 PO ; Start 05/05/17 at 11:00 A/P Assessment and Plan This is an 81-year-old female with syncopal episode Syncope -CT scan of brain negative. MRI of the brain is also negative. Carotid ultrasound negative. Labs reviewed only significant for possible UTI. Echo reviewed in EF is 55%. -Patient display no focal neurological deficits. No events over telemetry. Continue with telemetry -Neurologist was consulted. May be secondary to UTI versus possible TIA. Recommend treating as possible TIA with baby aspirin. Patient is currently on baby aspirin. Asymptomatic bacteriuria -Urine cultures positive pending final speciation and sensitivity. Will continue Rocephin. s/p fall and possible syncope with bilateral perioribital echymosis -Minimally displaced bilateral nasal bone fractures with adjacent soft tissue swelling Discharge Planning Pending urine cultures before discharge to SNF. Aimee Santoyo MD May 05, 2017 12:48
[2017-05-05] MEDS: ASPIRIN EC 81 MG TABEC PO SCH (13:25)
[2017-05-05] MEDS: cefTRIAXone INJ 1,000 MG in SODIUM CHLORIDE 0.9% INJ 100 ML IV SCH (15:48)
--- NOTE | 2017-05-05 16:48 | MG ---
cc: YAZ MORATAYA Lab No: [id number] Date: 05/05/17 Age: 81 Sex: F Race: TECHNIQUE 17 channel EEG. DESCRIPTION The background rhythm reveals an alpha rhythm frequency of 8-9 Hz. There is some slowing in the theta range which is probably related to drowsiness. Occasional eye movement artifact is identified. There is fairly prominent muscle artifact. There are no lateralizing features seen and no epileptiform discharges. The patient does appear to fall asleep. There are vertex sharp waves and sleep spindles present, probably normal sleep activity. Photic results in a modest driving response. INTERPRETATION Normal sleep and awake EEG. MD UMM Edwards/TOM /3:06 PM /4:49 PM
[2017-05-05] MEDS ORDERED: SODIUM CHLOR 0.9% 1000 ML INJ 1,000 ML IV SCH (19:45)
[2017-05-05] MEDS: ENOXAPARIN SODIUM 40 MG/0.4 ML SYRINGE SQ SCH ×2 (21:48→21:53)
[2017-05-05] MEDS: ATORVASTATIN 10 MG TAB PO SCH (21:48)
[2017-05-06 02:00] VITALS: BP 133/78; PULSE 72; RESP 20; TEMP 97.7; O2SAT 96
[2017-05-06 03:33] VITALS: PULSE 90
[2017-05-06 05:00] VITALS: BP 128/80; PULSE 69; RESP 19; TEMP 98.1; O2SAT 96
[2017-05-06] MEDS: INSULIN ASPART SUPPLEMENTAL SCALE SQ SCH ×2 (08:00→12:00)
[2017-05-06 08:48] VITALS: BP 175/94; PULSE 79; RESP 17; TEMP 98; O2SAT 95
[2017-05-06] MEDS: SODIUM CHLORIDE 0.9% FLUSH 5 ML FLUSH IV FLUSH SCH (09:00)
[2017-05-06] MEDS: ASPIRIN EC 81 MG TABEC PO SCH (10:05)
[2017-05-06] MEDS: ACETAMINOPHEN 500 MG CPLT PO PRN (10:05)
[2017-05-06 12:51] VITALS: BP 137/83; PULSE 75; RESP 17; TEMP 97.3; O2SAT 96
--- NOTE | 2017-05-06 13:06 | HHI.PR ---
Subjective Remarks Follow-up for confusion Patient is AAO 2. She knows name and location. She could not tell me the date. She is able to have normal conversations and answer questions appropriately. Complaining about wrist pain otherwise she has no other complaints. Patient stated that she does not like the thicken liquids that she is being given here, but will try to drink it. Discussed case with patient's nurse. Objective Vitals Vital Signs Date Time Temp Pulse Resp B/P (MAP) Pulse Ox O2 Delivery O2 Flow Rate FiO2 05/06/17 12:51 97.3 75 17 137/83 (101) 96 05/06/17 08:48 98.0 79 17 175/94 (121) 95 05/06/17 05:00 98.1 69 19 128/80 (96) 96 05/06/17 03:33 90 05/06/17 02:00 97.7 72 20 133/78 (96) 96 05/05/17 21:30 98.7 80 19 135/65 (88) 95 05/05/17 17:31 97.8 86 17 129/79 (96) 96 I/O 05/05/17 05/05/17 05/05/17 05/06/17 05/06/17 05/06/17 07:00 15:00 23:00 07:00 15:00 23:00 Intake Total 240 ml 400 ml 300 ml Balance 240 ml 400 ml 300 ml Intake Oral 240 ml 400 ml 300 ml # Voids 4 1 5 # Bowel Movements 0 1 Result Diagram: 05/03/17 1430 05/03/17 1430 Objective Remarks GENERAL: in NAD SKIN: Warm and dry. HEAD: Normocephalic. EYES: No scleral icterus. No injection or drainage. Upper and lower eyelid coloration is reddish that is improving. Does have ecchymosis around the left upper cheek that is improving. NECK: Supple, trachea midline. No JVD or lymphadenopathy. CARDIOVASCULAR: Regular rate and rhythm without murmurs, gallops, or rubs. RESPIRATORY: Breath sounds equal bilaterally. No accessory muscle use. GASTROINTESTINAL: Abdomen soft, non-tender, nondistended. MUSCULOSKELETAL: No cyanosis, or edema. NEURO: Grossly moves all extremities and sensation is grossly intact. AAO X2. Medications and IVs Current Medications Sodium Chloride (NS Flush) 2 ml UNSCH PRN IVF FLUSH AFTER USING IV ACCESS; Start 05/03/17 at 14:30; Stop 05/03/17 at 20:27; Status DC IV Flush (NS Flush) 2 ml BID IV FLUSH Last administered on 05/05/17 09:00; Start 05/03/17 at 21:00 IV Flush (NS Flush) 2 ml UNSCH PRN IV FLUSH FLUSH AFTER USING IV ACCESS; Start 05/03/17 at 18:15 Enalaprilat (Vasotec Inj) 1.25 mg Q4H PRN IV PUSH For SBP > 220 or DBP > 120; Start 05/03/17 at 18:15 Aspirin (Aspirin) 325 mg DAILY PO Last administered on 05/04/17 11:52; Start 05/03/17 at 18:15; Stop 05/04/17 at 16:14; Status DC Atorvastatin Calcium (Lipitor) 10 mg HS PO Last administered on 05/05/17 21:48 ; Start 05/03/17 at 21:00 Insulin Aspart (NovoLOG SUPPLEMENTAL SCALE) 1 ACHS SQ ; Start 05/03/17 at 21:00 Dextrose (D50w (Vial) Inj) 50 ml UNSCH PRN IV PUSH HYPOGLYCEMIA-SEE COMMENTS; Start 05/03/17 at 18:15 Glucagon (Glucagon Inj) 1 mg UNSCH PRN OTHER HYPOGLYCEMIA-SEE COMMENTS; Start 05/03/17 at 18:15 Enoxaparin Sodium (Lovenox Inj) 40 mg Q24H SQ Last administered on 05/04/17 22 :42; Start 05/03/17 at 20:00 Acetaminophen (Tylenol) 500 mg Q6H PRN PO pain 3-10 Last administered on 10:05; Start 05/04/17 at 14:15 Ceftriaxone Sodium 1000 mg/ Sodium Chloride 100 ml @ 200 mls/hr Q24H IV Last administered on 05/05/17 15:48; Start 05/04/17 at 16:00 Aspirin (Ecotrin Ec) 81 mg DAILY@1100 PO Last administered on 05/06/17 10:05 ; Start 05/05/17 at 11:00 Sodium Chloride 1,000 ml @ 70 mls/hr [id number] IV ; Start 05/05/17 at 19:45 A/P Assessment and Plan This is an 81-year-old female with syncopal episode Syncope -CT scan of brain negative. MRI of the brain is also negative. Carotid ultrasound negative. Labs reviewed only significant for possible UTI. Echo reviewed in EF is 55%. -Patient display no focal neurological deficits. No events over telemetry. Continue with telemetry -Neurologist was consulted. May be secondary to UTI versus possible TIA. Recommend treating as possible TIA with baby aspirin. Patient is currently on baby aspirin. Asymptomatic bacteriuria -Urine cultures positive, preliminary report Streptococcus species. I spoke with microbiology over the phone who stated that the final cultures will be available tomorrow. Continue with Rocephin pending final cultures. Poor historian -Most likely patient has an underlying dementia. Can be worked up as outpatient. s/p fall and possible syncope with bilateral perioribital echymosis -Minimally displaced bilateral nasal bone fractures with adjacent soft tissue swelling Discharge Planning Pending final urine cultures before discharge to SNF. Per microbiology it will be available tomorrow. Aimee Santoyo MD May 06, 2017 13:06
[2017-05-06] MEDS ORDERED: ACET500T13 PO (13:39)
[2017-05-06] MEDS ORDERED: AUGM875T3 PO (13:39)
[2017-05-06] MEDS ORDERED: ECASA81 PO (13:39)
--- NOTE | 2017-05-06 13:41 | HHI.DS ---
Discharge Summary Admission Date May 03, 2017 at 16:52 Discharge Date: May 06, 2017 Admitting Diagnosis SYNCOPE, R/O CVA (1) Syncopal episodes ICD Code: R55 - Syncope and collapse Diagnosis: Principal Status: Acute (2) UTI (urinary tract infection) ICD Code: N39.0 - Urinary tract infection, site not specified Diagnosis: Principal (3) Nasal bone fracture ICD Code: S02.2XXA - Fracture of nasal bones, initial encounter for closed fracture Diagnosis: Principal Status: Acute (4) ALZHEIMER'S DISEASE WITH LATE ONSET ICD Code: G30.1 - ALZHEIMER'S DISEASE WITH LATE ONSET Diagnosis: Secondary (5) Adjustment disorder with mixed disturbance of emotions and conduct ICD Code: F43.25 - Adjustment disorder with mixed disturbance of emotions and conduct Diagnosis: Secondary Procedures See hospital course. Brief History - From Admission pt is very sleepy during interview and exam poor historian denies all symptoms apart from saying " I think so" when asked whether she was dizzy, or passed out reports no medical issues reports no surgery hx CBC/BMP: 05/03/17 1430 05/03/17 1430 Significant Findings Laboratory Tests Test 05/03/17 14:30 05/03/17 23:03 05/04/17 07:37 Mean Corpuscular Volume 77.4 FL (80.0-100.0) Mean Corpuscular Hemoglobin 25.2 PG (27.0-34.0) Red Cell Distribution Width 20.6 % (11.6-17.2) Neutrophils (%) (Auto) 76.6 % (16.0-70.0) Urine Protein 30 mg/dL (NEG-TRACE) Urine Ketones 80 mg/dL (NEG) Urine Bacteria OCC /hpf (NONE) Urine Mucus FEW /lpf (OCC) Albumin 2.9 GM/DL (3.4-5.0) Alkaline Phosphatase 211 U/L (45-117) Estimat Glomerular Filtration Rate 77 ML/MIN (>89) Troponin I LESS THAN 0.02 NG/ML LESS THAN 0.02 NG/ML LESS THAN 0.02 NG/ML Imaging Last Impressions Carotid Artery Ultrasound 05/04/17 0000 Signed Impressions: Service Date/Time: Thursday, May 04, 2017 08:06 - CONCLUSION: 1. No significant atherosclerotic disease or stenosis is present within either internal carotid artery. 2. There is antegrade blood flow within both vertebral arteries. Mazin Newman MD Head CT 05/03/17 1423 Signed Impressions: Service Date/Time: Wednesday, May 03, 2017 15:25 - CONCLUSION: 1. Stable senescent changes and small vessel ischemic white matter demyelination. 2. No acute intracranial abnormality. Vikash Hoffmann MD Chest X-Ray 05/03/17 1423 Signed Impressions: Service Date/Time: Wednesday, May 03, 2017 14:47 - CONCLUSION: No acute cardiopulmonary abnormality is identified. Mazin Newman MD Maxillofacial CT 05/03/17 0000 Signed Impressions: Service Date/Time: Wednesday, May 03, 2017 15:26 - CONCLUSION: Minimally displaced bilateral nasal bone fractures with adjacent soft tissue swelling. No other acute maxillofacial fracture is identified. Mazin Newman MD Cervical Spine MRI 05/03/17 0000 Signed Impressions: Service Date/Time: Wednesday, May 03, 2017 19:38 - CONCLUSION: 1. Study is degraded by motion artifact. 2. Degenerative changes most pronounced at C4-C5 where there is abutment of the cord. No gross signal change within the cord. Demarco Ding Jr., MD Cervical Spine CT 05/03/17 0000 Signed Impressions: Service Date/Time: Wednesday, May 03, 2017 15:26 - CONCLUSION: 1. No acute cervical spine abnormality is identified. There is multilevel degenerative disc disease. 2. Mild centrilobular emphysema at the lung apices. Mazin Newman MD Brain MRI 05/03/17 0000 Signed Impressions: Service Date/Time: Wednesday, May 03, 2017 19:38 - CONCLUSION: 1. Motion degraded exam. 2. No acute infarction. 3. Atrophy and chronic small vessel ischemic change. Demarco Ding Jr., MD PE at Discharge GENERAL: in NAD SKIN: Warm and dry. HEAD: Normocephalic. EYES: No scleral icterus. No injection or drainage. Upper and lower eyelid coloration is reddish that is improving. Does have ecchymosis around the left upper cheek that is improving. NECK: Supple, trachea midline. No JVD or lymphadenopathy. CARDIOVASCULAR: Regular rate and rhythm without murmurs, gallops, or rubs. RESPIRATORY: Breath sounds equal bilaterally. No accessory muscle use. GASTROINTESTINAL: Abdomen soft, non-tender, nondistended. MUSCULOSKELETAL: No cyanosis, or edema. NEURO: Grossly moves all extremities and sensation is grossly intact. AAO X2. Pt update on day of discharge Microbiology spoke to me over the phone and stated that final cultures are back and will be updated. She stated that Aerococcus is penicillin sensitive so they do not do sensitivity for this type of bacteria. Hospital Course This is an 81-year-old female with syncopal episode Syncope -CT scan of brain negative. MRI of the brain is also negative. Carotid ultrasound negative. Labs reviewed only significant for possible UTI. Echo reviewed in EF is 55%. -Patient display no focal neurological deficits. No events over telemetry while patient was hospitalized. -Neurologist was consulted. May be secondary to UTI versus possible TIA or could be a combination of these 2. Recommend treating as possible TIA with baby aspirin. Patient is currently on baby aspirin. LDL was 54 so no indication for statin. Asymptomatic bacteriuria -Urine cultures positive so she was treated empirically with Rocephin pending urine cultures which final cultures grew Aerococcus. Per microbiology it is sensitive to penicillin so they do not do sensitivities for this microbial so patient was switched to Augmentin. Dementia -Patient is a poor story but she does have advanced dementia. s/p fall and possible syncope with bilateral perioribital echymosis -Minimally displaced bilateral nasal bone fractures with adjacent soft tissue swelling -Asymptomatic. Pt Condition on Discharge: Good Discharge Disposition: Discharge to SNF Discharge Time: > 30 minutes Discharge Instructions DIET: Follow Instructions for: Heart Healthy Diet Speech Therapy-Diet Recommends: Mechanical Soft, [place] Thickened Liquids Activities you can perform: Regular-No Restrictions Follow up Referrals: SNF/LONG-TERM/ - Daily New Medications: Amoxicillin-Clavulanate (Augmentin) 875-125 Mg Tab 1 TAB PO BID for Infection, #10 TAB 0 Refills Acetaminophen (APAP Extra Strength) 500 Mg Tab 500 MG PO Q6H PRN for pain 3-10, #30 TAB [address] (Aspirin DR) 81 Mg Tabdr 81 MG PO DAILY@1100 for TIA, #30 TAB 0 Refills Continued Medications: Quetiapine (Quetiapine) 25 Mg Tab 25 MG PO BID, #60 TAB 0 Refills Trazodone (Trazodone) 50 Mg Tab 50 MG PO HS for Control Depression, #30 TAB 0 Refills Discontinued Medications: Lorazepam (Lorazepam) 0.5 Mg Tab 0.5 MG PO Q8H PRN for ANXIETY, TAB 0 Refills Aimee Santoyo MD May 06, 2017 13:41
[2017-05-06 16:34] VITALS: BP 142/80; PULSE 83; RESP 17; TEMP 97.4; O2SAT 99
--- NOTE | 2017-05-10 15:42 | PD.CONS ---
Assessment and Plan Plan Consult received per stroke order set. EMR reviewed. MRI negative for acute stroke. Neurology consult reviewed and indicates TIA. Consult deferred due to no acute stroke. Please reconsult as appropriate. Thank you. Adelita Delgadillo MD May 10, 2017 15:42
== END 2017-05-06 19:51 | DRG 69 ==
LOC: NEPE 14:11 → NEDA 16:52 → N05A 20:26
PROVIDERS: ADMIT Hospitalist; ATTEND Hospitalist
DX: G45.9 Transient cerebral ischemic attack, unspecified (principal); N39.0 Urinary tract infection, site not specified; G30.1 Alzheimer's disease with late onset; J43.2 Centrilobular emphysema; F02.80 Dementia in other diseases classified elsewhere, unspecified severity, without behavioral disturbance, psychotic disturbance, mood disturbance, and anxiety; S02.2XXA Fracture of nasal bones, initial encounter for closed fracture; I10 Essential (primary) hypertension; H40.9 Unspecified glaucoma; F43.25 Adjustment disorder with mixed disturbance of emotions and conduct; Z86.73 Personal history of transient ischemic attack (TIA), and cerebral infarction without residual deficits; Z87.442 Personal history of urinary calculi; W06.XXXA Fall from bed, initial encounter; Y92.003 Bedroom of unspecified non-institutional (private) residence as the place of occurrence of the external cause; F41.9 Anxiety disorder, unspecified
CPT/HCPCS: 70450; 70486; 70551; 71010; 72125; 72141; 80053; 80061; 81001; 82550; 82948; 83036; 84484; 85025; 85610; 85730; 87077; 87086; 87186; 93005; 93306; 93880; 95819; J0696; J1650; P9612